=== PATIENT | female | born 1990 | race Caucasian/White ===

== ENCOUNTER 2017-03-11 16:25 | Emergency (ER) | payer OTHER ==
[2017-03-11 16:48] VITALS: BP 129/73
--- NOTE | 2017-03-11 16:52 | EDM.PDOC ---
ED HPI GENERAL MEDICAL PROBLEM - General Chief Complaint: ENT Problem Stated Complaint: LET EAR PAIN Time Seen by Provider: 03/11/17 16:36 - History of Present Illness INITIAL COMMENTS - FREE TEXT/NARRATIVE: HISTORY AND PHYSICAL: History of present illness: Past 26-year-old female presents with a concern of decreased hearing left ear she denies pain nausea vomiting fever chills other concern Review of systems: As per history of present illness and below otherwise all systems reviewed and negative. Past medical history: As per history of present illness and as reviewed below otherwise noncontributory. Surgical history: As per history of present illness and as reviewed below otherwise noncontributory. Social history: No reported history of drug or alcohol abuse. Family history: As per history of present illness and as reviewed below otherwise noncontributory. Physical exam: HEENT: Atraumatic, normocephalic, pupils reactive, negative for conjunctival pallor or scleral icterus, mucous membranes moist, throat clear, neck supple, nontender, trachea midline. Left TM is completely occluded with cerumen. There is no tenderness with movement of pinna or other significant finding Lungs: Clear to auscultation, breath sounds equal bilaterally, chest nontender. Heart: S1S2, regular, negative for clicks, rubs, or JVD. Abdomen: Soft, nondistended, nontender. Negative for masses or hepatosplenomegaly. Negative for costovertebral tenderness. Pelvis: Stable nontender. Genitourinary: Deferred. Rectal: Deferred. Extremities: Atraumatic, negative for cords or calf pain. Neurovascular unremarkable. Neuro: Awake, alert, oriented. Cranial nerves II through XII unremarkable. Cerebellum unremarkable. Motor and sensory unremarkable throughout. Exam nonfocal. Diagnostics: None Therapeutics: None Impression: #1 cerumen impaction left ear Definitive disposition and diagnosis as appropriate pending reevaluation and review of above. - Related Data Allergies Allergy/AdvReac Type Severity Reaction Status Date / Time [place] And Derivatives Allergy Stomach Verified 01/21/15 15:05 Upset metformin Allergy Muscle Verified 03/11/17 16:45 Aches aloe Allergy Rash Uncoded 01/21/15 15:05 Home Meds: Home Meds . [Unable to Verify Home Med List] 03/11/17 [History] Past Medical History - Past Health History Medical/Surgical History: Denies Medical/Surgical History Social & Family History - Tobacco Use Smoking Status *Q: Current Every Day Smoker Years of Tobacco use: 9 Packs/Tins Daily: 0.7 Second Hand Smoke Exposure: No - Alcohol Use Days Per Week of Alcohol Use: 0 - Recreational Drug Use Recreational Drug Use: No Drug Use in Last 12 Months: No Recreational Drug Type: Reports: Marijuana/Hashish, Methamphetamine Recreational Drug Use Frequency: Not Used In Over 1 Year ED ROS GENERAL - Review of Systems Review Of Systems: ROS reveals no pertinent complaints other than HPI. ED EXAM, GENERAL - Physical Exam Exam: See Below (Dictation) Course - Vital Signs Last Recorded V/S: Last Vital Signs Temp 36.4 C 03/11/17 16:46 Pulse 95 03/11/17 16:46 Resp 18 03/11/17 16:46 BP 129/73 03/11/17 16:46 Pulse Ox 97 03/11/17 16:46 Departure - Departure Time of Disposition: 16:51 Disposition: Home, Self-Care 01 Condition: Good Clinical Impression: Cerumen impaction - Discharge Information Referrals: PCP,None [Primary Care Provider] - Additional Instructions: The following information is given to patients seen in the emergency department who are being discharged to home. This information is to outline your options for follow-up care. We provide all patients seen in our emergency department with a follow-up referral. The need for follow-up, as well as the timing and circumstances, are variable depending upon the specifics of your emergency department visit. If you don't have a primary care physician on staff, we will provide you with a referral. We always advise you to contact your personal physician following an emergency department visit to inform them of the circumstance of the visit and for follow-up with them and/or the need for any referrals to a consulting specialist. The emergency department will also refer you to a specialist when appropriate. This referral assures that you have the opportunity for followup care with a specialist. All of these measure are taken in an effort to provide you with optimal care, which includes your followup. Under all circumstances we always encourage you to contact your private physician who remains a resource for coordinating your care. When calling for followup care, please make the office aware that this follow-up is from your recent emergency room visit. If for any reason you are refused follow-up, please contact the [facility] emergency department at and asked to speak to the emergency department charge nurse. [facility]NT [address] [place] [id number] [facility] drops as directed otic lavage as discussed follow-up primary medical doctor and ENT call to schedule routine appointment return as needed as discussed
== END 2017-03-11 17:00 | disposition home or self-care (01) ==
LOC: MW.ED 16:25
DX: H61.22 Impacted cerumen, left ear (principal); F17.210 Nicotine dependence, cigarettes, uncomplicated; Z88.8 Allergy status to other drugs, medicaments and biological substances; Z91.018 Allergy to other foods
CPT/HCPCS: 99282

== ENCOUNTER 2017-05-19 16:36 | Emergency (ER) | payer OTHER ==
--- NOTE | 2017-05-19 17:22 | EDM.PDOC ---
ED HPI GENERAL MEDICAL PROBLEM - General Chief Complaint: ENT Problem Stated Complaint: POSSIBLE STREP THROAT Time Seen by Provider: 05/19/17 17:10 Source of Information: Reports: Patient History Limitations: Reports: No Limitations - History of Present Illness INITIAL COMMENTS - FREE TEXT/NARRATIVE: HISTORY AND PHYSICAL: History of present illness: [Patient comes to the emergency room complaining of head congestion, cough, fever, and mild sore throat. Change in her appetite and taste of food. Had one episode of vomiting this morning. Denies earaches and headache. No chest pain, shortness of breath or difficulty breathing. Denies abdominal pain. No change in bowel movements or bladder. Temp was over 100 today. Has not taken any medications for her symptoms. was diagnosed w/ strep throat 3 days ago. ] Review of systems: As per history of present illness and below otherwise all systems reviewed and negative. Past medical history: As per history of present illness and as reviewed below otherwise noncontributory. Surgical history: As per history of present illness and as reviewed below otherwise noncontributory. Social history: No reported history of drug or alcohol abuse. Family history: As per history of present illness and as reviewed below otherwise noncontributory. Physical exam: HEENT: Atraumatic, normocephalic. TMs are pearly sen and without erythema. Eyes are clear. Oral mucous membranes are pink and moist. Mild tonsillar swelling and erythema but no exudate. Neck is supple. Mildly tender in shoddy anterior cervical lymph nodes. Lungs: Clear to auscultation, breath sounds equal bilaterally. No wheezing crackles or rales. Heart: S1S2, regular rate and rhythm. Abdomen: Soft, nondistended, nontender. Negative for costovertebral tenderness. Pelvis: Stable nontender. Genitourinary: Deferred. Rectal: Deferred. Extremities: Atraumatic. Full range of motion. Neurovascular unremarkable. Neuro: Awake, alert, oriented. Motor and sensory unremarkable throughout. Exam nonfocal. Diagnostics: [strep swab] Impression: [Streptococcal pharyngitis] Plan: [Strep swab is positive. Rx is written for amoxicillin 500 mg #30 si by mouth 3 times a day 0 refills. Instructed patient to push fluids, Tylenol and ibuprofen as needed for discomfort. Return to ER as needed as discussed. Patients in agreement with today's plan.] Definitive disposition and diagnosis as appropriate pending reevaluation and review of above. Throat Pain Score (Numeric/FACES): 5 - Related Data Allergies Allergy/AdvReac Type Severity Reaction Status Date / Time [place] And Derivatives Allergy Stomach Verified 05/19/17 18:05 Upset metformin Allergy Muscle Verified 05/19/17 18:05 Aches aloe Allergy Rash Uncoded 05/19/17 18:05 Home Meds: Home Meds . [No Known Home Meds] 05/19/17 [History] Past Medical History - Past Health History Medical/Surgical History: Denies Medical/Surgical History HEENT History: Reports: None Cardiovascular History: Reports: None Respiratory History: Reports: None Gastrointestinal History: Reports: None Genitourinary History: Reports: None VIDEO PRODUCTION INTERN History: Reports: Other (See Below) Other OB/BYN History: PCOS Musculoskeletal History: Reports: None Neurological History: Reports: None Psychiatric History: Reports: None Endocrine/Metabolic History: Reports: Diabetes, Type II Hematologic History: Reports: None Immunologic History: Reports: None Oncologic (Cancer) History: Reports: None Dermatologic History: Reports: None - Infectious Disease History Infectious Disease History: Reports: MRSA - Past Surgical History Head Surgeries/Procedures: Reports: None HEENT Surgical History: Reports: None Cardiovascular Surgical History: Reports: None Respiratory Surgical History: Reports: None GI Surgical History: Reports: None Female Surgical History: Reports: None Endocrine Surgical History: Reports: None Neurological Surgical History: Reports: None Musculoskeletal Surgical History: Reports: None Oncologic Surgical History: Reports: Other (See Below) Other Oncologic Surgeries/Procedures: Leg tumor removed Dermatological Surgical History: Reports: None Social & Family History - Family History Family Medical History: Noncontributory - Tobacco Use Smoking Status *Q: Current Every Day Smoker Years of Tobacco use: 9 Packs/Tins Daily: 0.7 Second Hand Smoke Exposure: No - Caffeine Use Caffeine Use: Reports: None - Alcohol Use Days Per Week of Alcohol Use: 0 - Recreational Drug Use Recreational Drug Use: No Drug Use in Last 12 Months: No Recreational Drug Type: Reports: Marijuana/Hashish, Methamphetamine Recreational Drug Use Frequency: Not Used In Over 1 Year ED ROS ENT - Review of Systems Review Of Systems: ROS reveals no pertinent complaints other than HPI. ED EXAM, ENT - Physical Exam Exam: See Below Course - Vital Signs Last Recorded V/S: Last Vital Signs Temp 98.2 F 05/19/17 18:00 Pulse 83 05/19/17 19:06 Resp 18 05/19/17 19:06 BP 129/89 05/19/17 19:06 Pulse Ox 95 05/19/17 19:06 Departure - Departure Time of Disposition: 18:46 Disposition: Home, Self-Care 01 Condition: Good Clinical Impression: Strep pharyngitis - Discharge Information Instructions: Strep Throat, [id number] Referrals: PCP,None [Primary Care Provider] - Forms: ED Department Discharge Additional Instructions: The following information is given to patients seen in the emergency department who are being discharged to home. This information is to outline your options for follow-up care. We provide all patients seen in our emergency department with a follow-up referral. The need for follow-up, as well as the timing and circumstances, are variable depending upon the specifics of your emergency department visit. If you don't have a primary care physician on staff, we will provide you with a referral. We always advise you to contact your personal physician following an emergency department visit to inform them of the circumstance of the visit and for follow-up with them and/or the need for any referrals to a consulting specialist. The emergency department will also refer you to a specialist when appropriate. This referral assures that you have the opportunity for follow-up care with a specialist. All of these measure are taken in an effort to provide you with optimal care, which includes your follow-up. Under all circumstances we always encourage you to contact your private physician who remains a resource for coordinating your care. When calling for follow-up care, please make the office aware that this follow-up is from your recent emergency room visit. If for any reason you are refused follow-up, please contact the [facility] emergency department at and asked to speak to the emergency department charge nurse. [facility] [address] [place] [id number] You have been diagnosed with strep throat. Follow-up with your primary care provider at the clinic listed above and 48-72 hours. Take antibiotics as prescribed. Push fluids. Tylenol alternating with ibuprofen as needed for fever or discomfort. Return to ER as needed as discussed.
[2017-05-19 19:07] VITALS: BP 129/89
== END 2017-05-19 19:05 | disposition home or self-care (01) ==
LOC: MW.ED 16:36
DX: J02.0 Streptococcal pharyngitis (principal); E11.9 Type 2 diabetes mellitus without complications; F17.210 Nicotine dependence, cigarettes, uncomplicated; Z88.8 Allergy status to other drugs, medicaments and biological substances
CPT/HCPCS: 87880; 99282; 99283

== ENCOUNTER 2017-09-08 19:56 | Emergency (ER) | payer OTHER ==
--- NOTE | 2017-09-08 20:22 | EDM.PDOC ---
ED HPI GENERAL MEDICAL PROBLEM - General Chief Complaint: Abdominal Pain Stated Complaint: BLOOD IN STOOL Time Seen by Provider: 09/08/17 20:20 Source of Information: Reports: Patient History Limitations: Reports: No Limitations - History of Present Illness INITIAL COMMENTS - FREE TEXT/NARRATIVE: HISTORY AND PHYSICAL: History of present illness: 27-year-old female presenting months prior when she complained of bright red per rectum on and off for the past week. Patient states that she is noticed some bright red blood per rectum. States she does sometimes have pain with defecation. Does have a history of anal fissure. Does report to chronic heartburn but does not take any medications for this. Uses milk to help relieve her heartburn. States that she does have some generalized lower abdominal pain but denies any overt sharp pains. No previous abdominal surgery. No history of diverticulosis or diverticulitis. Does have a past medical history of type 2 diabetes currently diet controlled. Currently denies any chest pain, palpitations, shortness breath, syncopal episodes, focal episodes. On exam patient Hemoccult is positive and I do believe I appreciate a small internal anal fissure on JUAN. No signs of internal or external hemorrhoids. Mild generalized lower abdominal pain. Review of systems: As per history of present illness and below otherwise all systems reviewed and negative. Past medical history: As per history of present illness and as reviewed below otherwise noncontributory. Surgical history: As per history of present illness and as reviewed below otherwise noncontributory. Social history: No reported history of drug or alcohol abuse. Family history: As per history of present illness and as reviewed below otherwise noncontributory. Physical exam: HEENT: Atraumatic, normocephalic, pupils reactive, negative for conjunctival pallor or scleral icterus, mucous membranes moist, throat clear, neck supple, nontender, trachea midline. Lungs: Clear to auscultation, breath sounds equal bilaterally, chest nontender. Heart: S1S2, regular, negative for clicks, rubs, or JVD. Abdomen: Soft, nondistended, nontender. Negative for masses or hepatosplenomegaly. Negative for costovertebral tenderness. Pelvis: Stable nontender. Genitourinary: Deferred. Rectal: See above H&P Extremities: Atraumatic, negative for cords or calf pain. Neurovascular unremarkable. Neuro: Awake, alert, oriented. Cranial nerves II through XII unremarkable. Cerebellum unremarkable. Motor and sensory unremarkable throughout. Exam nonfocal. Diagnostics: CBC, CMP, lipase, UA/UC, hCG, CT abdomen and pelvis, Hemoccult Therapeutics: 1 L normal saline, 8 mg IV Zofran. Impression: Suspect anal fissure Bright red blood per rectum Hyperglycemia with past medical history of type 2 diabetes Plan: CBC, CMP, lipase, and urinalysis were unremarkable other than hyperglycemia of 400 which I discussed with the patient. She has a history of type 2 diabetes but currently was being diet controlled as she has had improvement in the past. She is going to follow with her primary care provider about this after today's visit. On digital rectal exam I believe I was able appreciate a small anal fissure and Hemoccult was positive for microscopic blood. CT revealed a upper limits of normal appendiceal caliber with luminal fluid and mild wall enhancement, however without significant or appendiceal changes. They noted that the findings could be within normal limits for this patient but unequivocal for early appendicitis. On exam patient is not tender to palpation in the right lower quadrant. There was no evidence of diverticulitis or bowel obstruction however as per radiology dated recommend formal colonic evaluation secondary to her history. This was reported to the patient and she was told to follow-up with general surgery as well as a primary care provider. I did supply number as well as told her to call them and let them know that she was seen in emergency department and that I had requested that she be seen as soon as possible. She is instructed to return emerged department if she had any new or worsening symptoms. In further discussion with the patient I was able to elucidate the patient actually does have untreated GERD. I did not order a Helicobacter pylori but this should be done by either PCP or general surgery. I did prescribe her omeprazole 40 mg by mouth daily 14 days. abdomen Pain Score (Numeric/FACES): 6 - Related Data Allergies Allergy/AdvReac Type Severity Reaction Status Date / Time Magoffin And Derivatives Allergy Stomach Verified 09/08/17 20:22 Upset metformin Allergy Muscle Verified 09/08/17 20:22 Aches aloe Allergy Rash Uncoded 09/08/17 20:22 Home Meds: Home Meds Hydrocodone/Acetaminophen [Hydrocodon-Acetaminoph 7.5-300] 0 mg PO ASDIRECTED PRN 09/08/17 [History] Insulin Glarg,Human.Rec.Analog [Lantus] 12 units SQ ASDIRECTED 09/08/17 [History ] Past Medical History - Past Health History Medical/Surgical History: Denies Medical/Surgical History HEENT History: Reports: None Cardiovascular History: Reports: None Respiratory History: Reports: None Gastrointestinal History: Reports: None Genitourinary History: Reports: None CYLINDER DEVALVER History: Reports: Other (See Below) Other OB/BYN History: PCOS Musculoskeletal History: Reports: None Neurological History: Reports: None Psychiatric History: Reports: None Endocrine/Metabolic History: Reports: Diabetes, Type II Hematologic History: Reports: None Immunologic History: Reports: None Oncologic (Cancer) History: Reports: None Dermatologic History: Reports: None - Infectious Disease History Infectious Disease History: Reports: MRSA - Past Surgical History Head Surgeries/Procedures: Reports: None HEENT Surgical History: Reports: None Cardiovascular Surgical History: Reports: None Respiratory Surgical History: Reports: None GI Surgical History: Reports: None Female Surgical History: Reports: None Endocrine Surgical History: Reports: None Neurological Surgical History: Reports: None Musculoskeletal Surgical History: Reports: None Oncologic Surgical History: Reports: Other (See Below) Other Oncologic Surgeries/Procedures: Leg tumor removed Dermatological Surgical History: Reports: None Social & Family History - Family History Family Medical History: Noncontributory - Caffeine Use Caffeine Use: Reports: None ED ROS GENERAL - Review of Systems Review Of Systems: ROS reveals no pertinent complaints other than HPI. ED EXAM, GENERAL - Physical Exam Exam: See Below Course - Vital Signs Last Recorded V/S: Last Vital Signs Temp 97.9 F 09/08/17 20:29 Pulse 100 09/09/17 00:04 Resp 18 09/09/17 00:04 BP 138/84 09/09/17 00:04 Pulse Ox 95 09/08/17 23:25 - Orders/Labs/Meds Orders: Active Orders 24 hr Category Date Time Status Abdomen Pelvis w Cont [CT] Stat Exams 09/08/17 21:00 Taken CULTURE URINE [RM] Stat Lab 09/08/17 23:20 Ordered HCG QUALITATIVE,URINE [URCHEM] Stat Lab 09/08/17 23:20 Ordered UA W/MICROSCOPIC [URIN] Stat Lab 09/08/17 23:20 Ordered Sodium Chloride 0.9% [Saline Flush] Med 09/08/17 20:57 Active 10 ml FLUSH ASDIRECTED PRN Sodium Chloride 0.9% [Saline Flush] Med 09/08/17 20:57 Active 2.5 ml FLUSH ASDIRECTED PRN Sodium Chloride 0.9% [Saline Flush] Med 09/08/17 20:57 Active 2.5 ml FLUSH ASDIRECTED PRN Saline Lock Insert [OM.PC] Stat Oth 09/08/17 20:57 Ordered Medication Orders Sodium Chloride (Saline Flush) 2.5 ml FLUSH ASDIRECTED PRN PRN Reason: Keep Vein Open Sodium Chloride (Saline Flush) 10 ml FLUSH ASDIRECTED PRN PRN Reason: Keep Vein Open Sodium Chloride (Saline Flush) 2.5 ml FLUSH ASDIRECTED PRN PRN Reason: Keep Vein Open Labs: Laboratory Tests 09/08/17 09/08/17 09/08/17 Range/Units 20:57 21:02 21:02 WBC 10.20 (4.0-11.0) K/uL RBC 4.93 (4.30-5.90) M/uL Hgb 14.4 (12.0-16.0) g/dL Hct 41.6 (36.0-46.0) % MCV 84.4 (80.0-98.0) fL MCH 29.2 (27.0-32.0) pg MCHC 34.6 (31.0-37.0) g/dL RDW Std Deviation 40.3 (28.0-62.0) fl RDW Coeff of Kinjal 13 (11.0-15.0) % Plt Count 386 (150-400) K/uL MPV 9.00 (7.40-12.00) fL Neut % (Auto) 55.4 (48.0-80.0) % Lymph % (Auto) 34.4 (16.0-40.0) % Floyd % (Auto) 7.0 (0.0-15.0) % Eos % (Auto) 2.9 (0.0-7.0) % Baso % (Auto) 0.3 (0.0-1.5) % Neut # (Auto) 5.7 (1.4-5.7) K/uL Lymph # (Auto) 3.5 H (0.6-2.4) K/uL Floyd # (Auto) 0.7 (0.0-0.8) K/uL Eos # (Auto) 0.3 (0.0-0.7) K/uL Baso # (Auto) 0.0 (0.0-0.1) K/uL Nucleated RBC % 0.0 /100WBC Nucleated RBCs # 0 K/uL Sodium 137 (136-145) mmol/L Potassium 3.9 (3.5-5.1) mmol/L Chloride 102 (98-107) mmol/L Carbon Dioxide 25.3 (21.0-32.0) mmol/L BUN 11 (7.0-18.0) mg/dL Creatinine 0.8 (0.6-1.0) mg/dL Est Cr Clr Drug Dosing 110.39 mL/min Estimated GFR (MDRD) > 60.0 ml/min Glucose 403 H (74-106) mg/dL Calcium 8.7 (8.5-10.1) mg/dL Total Bilirubin 0.3 (0.2-1.0) mg/dL AST 38 H (15-37) IU/L ALT 54 (14-63) IU/L Alkaline Phosphatase 89 (46-116) U/L Total Protein 7.3 (6.4-8.2) g/dL Albumin 3.6 (3.4-5.0) g/dL Globulin 3.7 H (2.0-3.5) g/dL Albumin/Globulin Ratio 1.0 L (1.3-2.8) Amylase 43 (25-115) U/L Lipase 143 (73-393) U/L HCG, Quant < 1.0 mIU/mL Urine Color Urine Appearance Urine pH (5.0-8.0) Ur Specific Barlow (1.001-1.035) Urine Protein (NEGATIVE) mg/dL Urine Glucose (UA) (NEGATIVE) mg/dL Urine Ketones (NEGATIVE) mg/dL Urine Occult Blood (NEGATIVE) Urine Nitrite (NEGATIVE) Urine Bilirubin (NEGATIVE) Urine Urobilinogen (<2.0) EU/dL Ur Leukocyte Esterase (NEGATIVE) Urine RBC (0-2/HPF) Urine WBC (0-5/HPF) Ur Epithelial Cells (NONE-FEW) Urine Bacteria (NEGATIVE) Urine Mucus (NONE-MOD) Urine HCG, Qual (NEGATIVE) 09/08/17 09/08/17 Range/Units 23:20 23:20 WBC (4.0-11.0) K/uL RBC (4.30-5.90) M/uL Hgb (12.0-16.0) g/dL Hct (36.0-46.0) % MCV (80.0-98.0) fL MCH (27.0-32.0) pg MCHC (31.0-37.0) g/dL RDW Std Deviation (28.0-62.0) fl RDW Coeff of Kinjal (11.0-15.0) % Plt Count (150-400) K/uL MPV (7.40-12.00) fL Neut % (Auto) (48.0-80.0) % Lymph % (Auto) (16.0-40.0) % Floyd % (Auto) (0.0-15.0) % Eos % (Auto) (0.0-7.0) % Baso % (Auto) (0.0-1.5) % Neut # (Auto) (1.4-5.7) K/uL Lymph # (Auto) (0.6-2.4) K/uL Floyd # (Auto) (0.0-0.8) K/uL Eos # (Auto) (0.0-0.7) K/uL Baso # (Auto) (0.0-0.1) K/uL Nucleated RBC % /100WBC Nucleated RBCs # K/uL Sodium (136-145) mmol/L Potassium (3.5-5.1) mmol/L Chloride (98-107) mmol/L Carbon Dioxide (21.0-32.0) mmol/L BUN (7.0-18.0) mg/dL Creatinine (0.6-1.0) mg/dL Est Cr Clr Drug Dosing mL/min Estimated GFR (MDRD) ml/min Glucose (74-106) mg/dL Calcium (8.5-10.1) mg/dL Total Bilirubin (0.2-1.0) mg/dL AST (15-37) IU/L ALT (14-63) IU/L Alkaline Phosphatase (46-116) U/L Total Protein (6.4-8.2) g/dL Albumin (3.4-5.0) g/dL Globulin (2.0-3.5) g/dL Albumin/Globulin Ratio (1.3-2.8) Amylase (25-115) U/L Lipase (73-393) U/L HCG, Quant mIU/mL Urine Color YELLOW Urine Appearance SLT CLOUDY Urine pH 5.0 (5.0-8.0) Ur Specific Barlow <= 1.005 (1.001-1.035) Urine Protein NEGATIVE (NEGATIVE) mg/dL Urine Glucose (UA) >=1000 (NEGATIVE) mg/dL Urine Ketones NEGATIVE (NEGATIVE) mg/dL Urine Occult Blood NEGATIVE (NEGATIVE) Urine Nitrite NEGATIVE (NEGATIVE) Urine Bilirubin NEGATIVE (NEGATIVE) Urine Urobilinogen 0.2 (<2.0) EU/dL Ur Leukocyte Esterase TRACE (NEGATIVE) Urine RBC 0-1 (0-2/HPF) Urine WBC 1-3 (0-5/HPF) Ur Epithelial Cells MODERATE (NONE-FEW) Urine Bacteria FEW (NEGATIVE) Urine Mucus LIGHT (NONE-MOD) Urine HCG, Qual NEGATIVE (NEGATIVE) Meds: Medications Generic Name Dose Route Start Last Admin Trade Name Freq PRN Reason Stop Dose Admin Sodium Chloride 2.5 ml 09/08/17 20:57 Saline Flush FLUSH ASDIRECTED PRN Keep Vein Open Sodium Chloride 10 ml 09/08/17 20:57 Saline Flush FLUSH ASDIRECTED PRN Keep Vein Open Sodium Chloride 2.5 ml 09/08/17 20:57 Saline Flush FLUSH ASDIRECTED PRN Keep Vein Open Discontinued Medications Generic Name Dose Route Start Last Admin Trade Name Freq PRN Reason Stop Dose Admin Sodium Chloride 1,000 mls @ 999 mls/hr 09/08/17 20:57 09/08/17 22:27 Normal Saline IV 09/08/17 21:57 999 mls/hr .Bolus ONE Administration Departure - Departure Time of Disposition: 00:45 Disposition: Home, Self-Care 01 Condition: Good Clinical Impression: Anal fissure, unspecified, Bright red blood per rectum - Discharge Information Referrals: PCP,None [Primary Care Provider] - Forms: ED Department Discharge Additional Instructions: My general discharge The following information is given to patients seen in the emergency department who are being discharged to home. This information is to outline your options for follow-up care. We provide all patients seen in our emergency department with a follow-up referral. The need for follow-up, as well as the timing and circumstances, are variable depending upon the specifics of your emergency department visit. If you don't have a primary care physician on staff, we will provide you with a referral. We always advise you to contact your personal physician following an emergency department visit to inform them of the circumstance of the visit and for follow-up with them and/or the need for any referrals to a consulting specialist. The emergency department will also refer you to a specialist when appropriate. This referral assures that you have the opportunity for follow-up care with a specialist. All of these measure are taken in an effort to provide you with optimal care, which includes your follow-up. Under all circumstances we always encourage you to contact your private physician who remains a resource for coordinating your care. When calling for follow-up care, please make the office aware that this follow-up is from your recent emergency room visit. If for any reason you are refused follow-up, please contact the [facility] Emergency Department at and asked to speak to the emergency department charge nurse. [facility] [address] [place] [id number] My General Surgery [facility] - General Surgery Professional Building [address] [place] [address], [address] [place] [address] [facility] - Women's Health [address] [place] [id number] [facility] [address] [place] [id number] Please see above numbers to schedule follow-up care with general surgery as well as primary care and women's health. Be sure to tell them that you were seen in emergency department and they recommended follow-up as soon as possible especially with surgery as I would recommend that you have an EGD as well as colonoscopy and Helicobacter pylori testing. Take medication as prescribed. Return emergency department if any new or worsening symptoms. - My Orders Last 24 Hours: My Active Orders 09/08/17 20:57 Sodium Chloride 0.9% [Saline Flush] 10 ml FLUSH ASDIRECTED PRN Sodium Chloride 0.9% [Saline Flush] 2.5 ml FLUSH ASDIRECTED PRN Sodium Chloride 0.9% [Saline Flush] 2.5 ml FLUSH ASDIRECTED PRN Saline Lock Insert [OM.PC] Stat 09/08/17 21:00 Abdomen Pelvis w Cont [CT] Stat 09/08/17 23:20 CULTURE URINE [RM] Stat HCG QUALITATIVE,URINE [URCHEM] Stat UA W/MICROSCOPIC [URIN] Stat - Assessment/Plan Last 24 Hours: My Active Orders 09/08/17 20:57 Sodium Chloride 0.9% [Saline Flush] 10 ml FLUSH ASDIRECTED PRN Sodium Chloride 0.9% [Saline Flush] 2.5 ml FLUSH ASDIRECTED PRN Sodium Chloride 0.9% [Saline Flush] 2.5 ml FLUSH ASDIRECTED PRN Saline Lock Insert [OM.PC] Stat 09/08/17 21:00 Abdomen Pelvis w Cont [CT] Stat 09/08/17 23:20 CULTURE URINE [RM] Stat HCG QUALITATIVE,URINE [URCHEM] Stat UA W/MICROSCOPIC [URIN] Stat
[2017-09-08] MEDS ORDERED: Sodium Chloride 0.9% 1,000 ML IV ONE (20:57)
[2017-09-08] MEDS ORDERED: Sodium Chloride 0.9% 10 ML Syringe FLUSH PRN (20:57)
[2017-09-08] MEDS ORDERED: Sodium Chloride 0.9% 2.5 ML Syringe FLUSH PRN ×2 (20:57)
[2017-09-08 21:34] LABS: CHLORIDE,CL 102 mmol/L (98-107); SODIUM,NA 137 mmol/L (136-145)
[2017-09-09 01:08] VITALS: BP 148/88
--- NOTE | 2017-09-09 16:37 | CT ---
EXAM DATE: 09/08/17 PATIENT'S AGE: 27 EXAM DATE: 09/08/17 PATIENT'S AGE: 27 Patient: RENATA REILLY Facility: [place], [place] Site . Site : 1990 Study: CT Abdomen/Pelvis [id number] 11:12:36 PM Ordering Physician: Anthony Keating Final Report: INDICATION: Bloody stools TECHNIQUE: CT abdomen and pelvis acquired with IV contrast. COMPARISON: None available FINDINGS: Lower chest: Unremarkable. Liver: Hepatic steatosis. Spleen: Unremarkable. Pancreas: Unremarkable. Gallbladder and bile ducts: Apparent small reticular densities within the contracted gallbladder lumen could represent cholelithiasis. Adrenal glands: Unremarkable. Kidneys: Unremarkable. GI tract: No bowel obstruction. The appendix is upper limits of normal in caliber and fluid-filled, with slight wall enhancement, however without significant periappendiceal changes. No significant pericolonic changes. Vascular structures: Unremarkable. Lymph nodes: Several subcentimeter right lower quadrant mesenteric lymph nodes are probably reactive. No abnormally enlarged lymph nodes seen. Miscellaneous: Unremarkable. No free air or significant free fluid. Pelvic Organs: Unremarkable. Bones: Unremarkable for age. IMPRESSION: Upper limits of normal appendiceal caliber with luminal fluid and mild wall enhancement, however without significant periappendiceal changes. The findings could be within normal limits for this patient, however equivocal for early appendicitis. Correlate clinically. No evidence of diverticulitis or bowel obstruction. Please note that this examination does not constitute adequate evaluation of the colonic lumen and given the history, formal colonic evaluation is advised. Hepatic steatosis. Dictated by Aníbal Garcia MD @ 09/08/2017 11:23:58 PM Please note that all CT scans at this facility use dose modulation, iterative reconstruction, and/or weight-based dosing when appropriate to reduce radiation dose to as low as reasonably achievable. Dictated by: Aníbal Garcia MD @ 09/08/2017 23:24:05 (Electronic Signature) Report Signed by Proxy. KAROL
== END 2017-09-09 01:08 | disposition home or self-care (01) ==
LOC: MW.ED 19:56
DX: K60.2 Anal fissure, unspecified (principal); K62.5 Hemorrhage of anus and rectum; E11.65 Type 2 diabetes mellitus with hyperglycemia; Z91.018 Allergy to other foods; Z88.8 Allergy status to other drugs, medicaments and biological substances
CPT/HCPCS: 36415; 74177; 80053; 81001; 81025; 82150; 83690; 84702; 85025; 87086; 96360; 96361; 99284; J7040

== ENCOUNTER 2018-12-17 13:31 | Emergency (ER) | payer OTHER ==
[2018-12-17] MEDS ORDERED: Albuterol/Ipratropium 3.0-0.5 MG/3 ML Neb Soln NEB ONE (13:58)
--- NOTE | 2018-12-17 13:58 | EDM.PDOC ---
ED HPI GENERAL MEDICAL PROBLEM - General Chief Complaint: Respiratory Problem Stated Complaint: COUGH Time Seen by Provider: 12/17/18 13:58 Source of Information: Reports: Patient History Limitations: Reports: No Limitations - History of Present Illness INITIAL COMMENTS - FREE TEXT/NARRATIVE: HISTORY AND PHYSICAL: History of present illness: Patient is a 28-year-old female presents to the ED with complaint of cough x 2 days. She states she is up all night coughing and has had subjective fevers. She denies chest pain, shortness of breath, nausea, vomiting, abdominal pain, diarrhea. She reports smoking 1/2ppd x 10+ years. Review of systems: As per history of present illness and below otherwise all systems reviewed and negative. Past medical history: As per history of present illness and as reviewed below otherwise noncontributory. Surgical history: As per history of present illness and as reviewed below otherwise noncontributory. Social history: No reported history of drug or alcohol abuse. Family history: As per history of present illness and as reviewed below otherwise noncontributory. Physical exam: General: Patient sitting comfortably in no acute distress and nontoxic appearing HEENT: Atraumatic, normocephalic, pupils reactive, negative for conjunctival pallor or scleral icterus, mucous membranes moist, throat clear, neck supple, nontender, trachea midline. No meningeal signs. Lungs: Wheezing throughout all lung velazquez, chest nontender. Heart: S1S2, regular, negative for clicks, rubs, or overt murmur. Abdomen: Soft, nondistended, nontender. Negative for masses or hepatosplenomegaly. Negative for costovertebral tenderness. No rigidity, rebound , guarding. Pelvis: Stable nontender. Genitourinary: Deferred. Rectal: Deferred. Extremities: Atraumatic, negative for cords or calf pain. Neurovascular unremarkable. Neuro: Awake, alert, oriented. Cranial nerves II through XII unremarkable. Cerebellum unremarkable. Motor and sensory unremarkable throughout. Exam nonfocal. Notes: Diagnostics: Chest x-ray, influenza Therapeutics: DuoNeb Prescriptions: Medrol dosepak Azithromycin Ventolin inhaler Impression: Acute bronchitis Plan: Take medications as instructed Follow up with primary care provider Return to ED as needed as discussed Definitive disposition and diagnosis as appropriate pending reevaluation and review of above. - Related Data Allergies Allergy/AdvReac Type Severity Reaction Status Date / Time [place] And Derivatives Allergy "throat Verified 10/10/17 10:24 swells" metformin Allergy Seizure Verified 10/10/17 10:24 aloe Allergy Nausea and Uncoded 10/10/17 10:24 Vomiting Home Meds: Home Meds Insulin Glarg,Human.Rec.Analog [Lantus] 12 units SQ ASDIRECTED PRN 09/08/17 [ History] Albuterol [Ventolin HFA] 1 puff INH Q4H #1 inhaler 12/17/18 [Rx] Azithromycin [Zithromax] 250 mg PO ASDIRECTED #1 dosepk 12/17/18 [Rx] methylPREDNISolone [Medrol] 4 mg PO ASDIRECTED #1 tab.ds.pk 12/17/18 [Rx] Past Medical History - Past Health History Medical/Surgical History: Denies Medical/Surgical History HEENT History: Reports: None Cardiovascular History: Reports: None Respiratory History: Reports: None Gastrointestinal History: Reports: GERD, Other (See Below) Other Gastrointestinal History: dysphagia Genitourinary History: Reports: Renal 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: Reports: Polycystic Ovaries, Musculoskeletal History: Reports: Fracture Other Musculoskeletal History: fx foot Neurological History: Reports: Migraines, Seizure 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 Psychiatric History: Reports: None Endocrine/Metabolic History: Reports: Obesity/BMI 30+, Other (See Below) Other Endocrine/Metabolic History: "insulin resistant" Hematologic History: Reports: None Immunologic History: Reports: None Oncologic (Cancer) History: Reports: None Dermatologic History: Reports: None - Infectious Disease History Infectious Disease History: Reports: MRSA - Past Surgical History Head Surgeries/Procedures: Reports: None HEENT Surgical History: Reports: Oral Surgery Cardiovascular Surgical History: Reports: None Respiratory Surgical History: Reports: None GI Surgical History: Reports: None Female Surgical History: Reports: None Endocrine Surgical History: Reports: None Neurological Surgical History: Reports: None Musculoskeletal Surgical History: Reports: None Other Musculoskeletal Surgeries/Procedures:: LEFT THIGH TUMOR Oncologic Surgical History: Reports: None Dermatological Surgical History: Reports: Other (See Below) Social & Family History - Family History Family Medical History: Noncontributory - Caffeine Use Caffeine Use: Reports: None ED ROS GENERAL - Review of Systems Review Of Systems: ROS reveals no pertinent complaints other than HPI. ED EXAM, GENERAL - Physical Exam Exam: See Below (see dictation) Course - Vital Signs Last Recorded V/S: Last Vital Signs Temp 97 F 12/17/18 14:00 Pulse 98 12/17/18 14:00 Resp 22 H 12/17/18 14:00 BP 143/90 H 12/17/18 14:00 Pulse Ox 95 12/17/18 14:00 - Orders/Labs/Meds Orders: Active Orders 24 hr Category Date Time Status RT Aerosol Therapy [RC] ASDIRECTED Care 12/17/18 13:58 Active Meds: Medications Discontinued Medications Generic Name Dose Route Start Last Admin Trade Name Freq PRN Reason Stop Dose Admin Albuterol/Ipratropium 3 ml 12/17/18 13:58 12/17/18 14:06 Duoneb 3.0-0.5 Mg/3 Ml NEB 12/17/18 13:59 3 ml ONETIME ONE Administration Departure - Departure Time of Disposition: 15:23 Disposition: Home, Self-Care 01 Condition: Good Clinical Impression: Acute bronchitis - Discharge Information Prescriptions: Albuterol [Ventolin HFA] 1 puff INH Q4H #1 inhaler Azithromycin [Zithromax] 250 mg PO ASDIRECTED #1 dosepk methylPREDNISolone [Medrol] 4 mg PO ASDIRECTED #1 tab.ds.pk Referrals: Mesfin Guido MD [Primary Care Provider] - Forms: ED Department Discharge Additional Instructions: The following information is given to patients seen in the emergency department who are being discharged to home. This information is to outline your options for follow-up care. We provide all patients seen in our emergency department with a follow-up referral. The need for follow-up, as well as the timing and circumstances, are variable depending upon the specifics of your emergency department visit. If you don't have a primary care physician on staff, we will provide you with a referral. We always advise you to contact your personal physician following an emergency department visit to inform them of the circumstance of the visit and for follow-up with them and/or the need for any referrals to a consulting specialist. The emergency department will also refer you to a specialist when appropriate. This referral assures that you have the opportunity for follow-up care with a specialist. All of these measure are taken in an effort to provide you with optimal care, which includes your follow-up. Under all circumstances we always encourage you to contact your private physician who remains a resource for coordinating your care. When calling for follow-up care, please make the office aware that this follow-up is from your recent emergency room visit. If for any reason you are refused follow-up, please contact the [facility] Emergency Department at and asked to speak to the emergency department charge nurse. [facility] Primary [facility] [address] [place] [id number] [facility] [address] [place] [id number] Take medications as instructed Follow up with primary care provider Return to ED as needed as discussed - My Orders Last 24 Hours: My Active Orders 12/17/18 13:58 RT Aerosol Therapy [RC] ASDIRECTED - Assessment/Plan Last 24 Hours: My Active Orders 12/17/18 13:58 RT Aerosol Therapy [RC] ASDIRECTED
[2018-12-17 14:03] VITALS: BP 143/90; PULSE 98
--- NOTE | 2018-12-17 15:00 | CR ---
INDICATION: pain, sob TECHNIQUE: Chest 2 views. COMPARISON: 09/11/14 FINDINGS: Cardiovascular and mediastinum: Heart size and vasculature are normal in caliber and appearance. Mediastinum is within normal limits. Lungs and pleural spaces: Lungs are clear. No sign of infiltrate or mass. No sign of pleural effusion. No pneumothorax. Bones and soft tissues: No significant findings. IMPRESSION: Unremarkable chest. Dictated by: Rony Winn MD @ 12/17/2018 14:57:43 (Electronically Signed)
== END 2018-12-17 15:37 | disposition home or self-care (01) ==
LOC: MW.ED 13:31
DX: J20.9 Acute bronchitis, unspecified (principal); E66.9 Obesity, unspecified; F17.210 Nicotine dependence, cigarettes, uncomplicated; Z91.018 Allergy to other foods; Z88.8 Allergy status to other drugs, medicaments and biological substances; Z91.09 Other allergy status, other than to drugs and biological substances
CPT/HCPCS: 71046; 71046-26; 87804; 94640; 99284-25; J7620-GY

== ENCOUNTER 2020-06-21 14:41 | Day surgery (SDC) | payer OTHER ==
[2020-06-21] MEDS ORDERED: Sodium Chloride 0.9% 2.5 ML Syringe FLUSH PRN (14:50)
[2020-06-21] MEDS ORDERED: Sodium Chloride 0.9% 10 ML Syringe FLUSH PRN (14:50)
[2020-06-21] MEDS ORDERED: Sodium Chloride 0.9% 1,000 ML IV ONE ×2 (14:57→15:14)
--- NOTE | 2020-06-21 15:06 | EDM.PDOC ---
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 Her blood type is O+ in our records. The patient began to bleed heavily at 6 AM. She has been spotting off and on for more than a week. Today she got orthostatic symptoms and passed out twice one time hitting her head on the side of her shower and causing her neck pain. The patient is weak and dizzy and diaphoretic when she stands up. The thought of food causes her to feel nauseated so she has not eaten since she had some coffee at 8 AM and she has had nothing since then. Review of systems: As per history of present illness and below otherwise all systems reviewed and negative. Past medical history: As per history of present illness and as reviewed below otherwise noncontributory. Surgical history: As per history of present illness and as reviewed below otherwise noncontributory. Social history: No reported history of drug or alcohol abuse. Family history: As per history of present illness and as reviewed below otherwise noncontributory. Physical exam: Constitutional - well developed, well-nourished and in no acute distress HEENT - normocephalic, no evidence of trauma - external nose and mouth normal - no mass in neck and no JVD - mucosae moist EYES - full EOM, PERRL, no icterus - no evidence of inflammation, injection, or drainage Respiratory - no respiratory distress, equal bilateral expansion, lungs clear to auscultation and no abnormal lung sounds Cardiovascular - Regular Rhythm with S1 and S2 appreciated and no murmur, gallop or rub. GI - abdomen soft without distension or organomegaly - normal bowel sounds - no guard or rebound Musculoskeletal no gross deformity of long bones or joints - no tenderness, swelling or edema Neurologic - Alert and oriented times four - CN II-XII grossly intact - motor sensory and coordination symmetrically normal Psychiatric - appropriate mood and affect with normal thought content Hematologic - No petechiae or purpura - mucosa appropriate color and sclera not pale - normal nail bed color and refill Integument - no rash or evidence of trauma - normal turgor Diagnostics: [] Therapeutics: [] Impression: [] Plan: [] Definitive disposition and diagnosis as appropriate pending reevaluation and review of above. Abdomen Pain Score (Numeric/FACES): 10 - Related Data Allergies Allergy/AdvReac Type Severity Reaction Status Date / Time adhesive Allergy Rash Verified 06/21/20 14:47 [place] And Derivatives Allergy "throat Verified 06/21/20 14:47 swells" metformin Allergy Seizure Verified 06/21/20 14:47 aloe Allergy Nausea and Uncoded 06/21/20 14:47 Vomiting Home Meds: Home Meds Insulin Glarg,Human.Rec.Analog [Lantus] 12 units SQ ASDIRECTED PRN 09/08/17 [History] Insulin Aspart [NovoLOG] 1 dose SUBCUT ASDIRECTED 06/21/20 [History] Past Medical History - Past Health History Medical/Surgical History: Denies Medical/Surgical History HEENT History: Reports: None Cardiovascular History: Reports: None Respiratory History: Reports: None Gastrointestinal History: Reports: GERD, Other (See Below) Other Gastrointestinal History: dysphagia Genitourinary History: Reports: Renal Calculus 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: 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, Musculoskeletal History: Reports: Fracture Other Musculoskeletal History: fx foot Neurological History: Reports: Migraines, Seizure 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 Psychiatric History: Reports: None Endocrine/Metabolic History: Reports: Obesity/BMI 30+, Other (See Below) Other Endocrine/Metabolic History: "insulin resistant" Hematologic History: Reports: None Immunologic History: Reports: None Oncologic (Cancer) History: Reports: None Dermatologic History: Reports: None - Infectious Disease History 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, MRSA - Past Surgical History Head Surgeries/Procedures: Reports: None HEENT Surgical History: Reports: Oral Surgery Cardiovascular Surgical History: Reports: None Respiratory Surgical History: Reports: None GI Surgical History: Reports: None Female Surgical History: Reports: None Endocrine Surgical History: Reports: None Neurological Surgical History: Reports: None Musculoskeletal Surgical History: Reports: None Other Musculoskeletal Surgeries/Procedures:: LEFT THIGH TUMOR Oncologic Surgical History: Reports: None Dermatological Surgical History: Reports: Other (See Below) Social & Family History - Family History Family Medical History: No Pertinent Family History - Tobacco Use Tobacco Use Status *Q: Former Tobacco User Used Tobacco, but Quit: Yes Month/Year Tobacco Last Used: 05/2020 - Caffeine Use Caffeine Use: Reports: None - Recreational Drug Use Recreational Drug Use: No ED ROS GENERAL - Review of Systems Review Of Systems: Comprehensive ROS is negative, except as noted in HPI. ED EXAM, GENERAL - Physical Exam Exam: See Below Free Text/Narrative:: My physical exam is in the HPI Course - Vital Signs Text/Narrative:: [address] Alvarado who recommends that we repeat the ultrasound to see how much biotic may be retained. She wants a speculum and bimanual exam to see if the tissue has passed into the vaginal vault. She agrees with my resuscitation plan and of course wants to be notified immediately if the patient deteriorates or if 5 given ample crystalloid resuscitation she is still orthostatic. Annual exam there are clots in the vagina but nothing that appears to be tissue. After portable lateral and AP C-spine I remove the collar and kept her still while we did a modified odontoid. I feel it adequately clears her from fracture. I then palpated the posterior spine and there is no point tenderness or crepitation or step-off. Her tenderness is actually in the right occiput. She is not on blood thinner and therefore I am not scanning her head. C-collar will be left off. The patient remained stable after the first liter fluid but her tachycardia persists. Initial hemoglobin is 12 with us after dilution with 2 units or [address] Alvarado intended the patient in the emergency department and decided to take her for D&C. Last Recorded V/S: Last Vital Signs Temp 35.9 C L 06/21/20 14:48 Pulse 93 06/21/20 16:39 Resp 18 06/21/20 15:17 BP 154/69 H 06/21/20 16:39 Pulse Ox 98 06/21/20 16:39 - Orders/Labs/Meds Orders: Active Orders 24 hr Category Date Time Status Communication Order [RC] STAT Care 06/21/20 14:58 Active Verify Patient Consent Obtain [RC] ASDIRECTED Care 06/21/20 15:10 Active Pelvis Non OB Ltd [US] Stat Exams 06/21/20 15:04 Taken CORONAVIRUS COVID-19 HARRIETT [MOLEC] Stat Lab 06/21/20 16:45 Received RED BLOOD CELLS LP [BBK] Stat Lab 06/21/20 14:56 Results TYPE AND SCREEN [BBK] Stat Lab 06/21/20 14:56 Results Sodium Chloride 0.9% [Saline Flush] Med 06/21/20 14:50 Active 10 ml FLUSH ASDIRECTED PRN Sodium Chloride 0.9% [Saline Flush] Med 06/21/20 14:50 Active 2.5 ml FLUSH ASDIRECTED PRN Saline Lock Insert [OM.PC] Stat Ot 06/21/20 14:50 Ordered Transfuse Red Blood Cells [COMM] Stat Ot 06/21/20 15:10 Ordered Medication Orders Sodium Chloride (Sodium Chloride 0.9% 10 Ml Syringe) 10 ml FLUSH ASDIRECTED PRN PRN Reason: Keep Vein Open Last Admin: 06/21/20 15:16 Dose: 10 ml Documented by: ALISHA Sodium Chloride (Sodium Chloride 0.9% 2.5 Ml Syringe) 2.5 ml FLUSH ASDIRECTED PRN PRN Reason: Keep Vein Open Last Admin: 06/21/20 15:16 Dose: 2.5 ml Documented by: ALISHA Labs: Laboratory Tests 06/21/20 06/21/20 06/21/20 Range/Units 14:55 14:55 14:56 WBC 15.21 H (4.0-11.0) K/uL RBC 3.96 L (4.30-5.90) M/uL Hgb 12.0 (12.0-16.0) g/dL Hct 35.1 L (36.0-46.0) % MCV 88.6 (80.0-98.0) fL MCH 30.3 (27.0-32.0) pg MCHC 34.2 (31.0-37.0) g/dL RDW Std Deviation 41.0 (28.0-62.0) fl RDW Coeff of Kinjal 13 (11.0-15.0) % Plt Count 360 (150-400) K/uL MPV 8.70 (7.40-12.00) fL Neut % (Auto) 69.3 (48.0-80.0) % Lymph % (Auto) 21.7 (16.0-40.0) % [place] % (Auto) 6.2 (0.0-15.0) % Eos % (Auto) 2.5 (0.0-7.0) % Baso % (Auto) 0.3 (0.0-1.5) % Neut # (Auto) 10.6 H (1.4-5.7) K/uL Lymph # (Auto) 3.3 H (0.6-2.4) K/uL [place] # (Auto) 0.9 H (0.0-0.8) K/uL Eos # (Auto) 0.4 (0.0-0.7) K/uL Baso # (Auto) 0.0 (0.0-0.1) K/uL Nucleated RBC % 0.0 /100WBC Nucleated RBCs # 0 K/uL Sodium 137 (136-145) mmol/L Potassium 3.8 (3.5-5.1) mmol/L Chloride 102 (98-107) mmol/L Carbon Dioxide 21.4 (21.0-32.0) mmol/L BUN 10 (7.0-18.0) mg/dL Creatinine 0.9 (0.6-1.0) mg/dL Est Cr Clr Drug Dosing 96.39 mL/min Estimated GFR (MDRD) > 60.0 ml/min Glucose 205 H (74-106) mg/dL Calcium 8.5 (8.5-10.1) mg/dL Total Bilirubin 0.3 (0.2-1.0) mg/dL AST 18 (15-37) IU/L ALT 22 (14-63) IU/L Alkaline Phosphatase 57 (46-116) U/L Total Protein 6.9 (6.4-8.2) g/dL Albumin 3.0 L (3.4-5.0) g/dL Globulin 3.9 (2.6-4.0) g/dL Albumin/Globulin Ratio 0.8 L (0.9-1.6) HCG, Quant 4970.0 mIU/mL Blood Type O POSITIVE Antibody Screen NEGATIVE Crossmatch See Detail Meds: Medications Generic Name Dose Route Start Last Admin Trade Name Freq PRN Reason Stop Dose Admin Sodium Chloride 10 ml 06/21/20 14:50 06/21/20 15:16 Sodium Chloride 0.9% 10 Ml Syringe FLUSH 10 ml ASDIRECTED PRN Administration Keep Vein Open Sodium Chloride 2.5 ml 06/21/20 14:50 06/21/20 15:16 Sodium Chloride 0.9% 2.5 Ml Syringe FLUSH 2.5 ml ASDIRECTED PRN Administration Keep Vein Open Discontinued Medications Generic Name Dose Route Start Last Admin Trade Name Daniel PRN Reason Stop Dose Admin Diphenhydramine HCl 25 mg 06/21/20 16:36 06/21/20 16:49 Diphenhydramine 50 Mg/Ml Sdv IVPUSH 06/21/20 16:37 25 mg ONETIME ONE Administration Fentanyl Confirm 06/21/20 15:12 06/21/20 15:14 Fentanyl 50 Mcg/Ml Sdv Administered 06/21/20 15:13 Not Given Dose 50 mcg .ROUTE .STK-MED ONE Fentanyl 50 mcg 06/21/20 15:15 06/21/20 15:17 Fentanyl 50 Mcg/Ml Sdv IVPUSH 06/21/20 15:16 50 mcg ONETIME ONE Administration Sodium Chloride 1,000 mls @ 1,000 mls/hr 06/21/20 14:57 06/21/20 15:15 Normal Saline IV 06/21/20 15:56 1,000 mls/hr .Bolus ONE Administration Sodium Chloride 1,000 mls @ 999 mls/hr 06/21/20 15:14 06/21/20 15:16 Normal Saline IV 06/21/20 16:14 999 mls/hr .Bolus ONE Administration Departure - Departure Time of Disposition: 17:01 Disposition: Refer to Observation Condition: Good Clinical Impression: Incomplete , Hemorrhage, Impending shock of cardiovascular system - Discharge Information Referrals: PCP,None [Primary Care Provider] - Forms: ED Department Discharge Sepsis Event Note (ED) - Evaluation Sepsis Screening Result: Possible Sepsis Risk - Focused Exam Vital Signs: Vital Signs Temp Pulse Resp BP Pulse Ox 06/21/20 16:39 93 154/69 H 98 06/21/20 16:05 105 H 163/114 H 100 06/21/20 15:49 104 H 125/89 98 06/21/20 15:34 88 131/66 99 06/21/20 15:17 96 18 134/72 98 06/21/20 14:48 35.9 C L 117 H 18 111/72 97 - My Orders Last 24 Hours: My Active Orders 06/21/20 14:50 Sodium Chloride 0.9% [Saline Flush] 10 ml FLUSH ASDIRECTED PRN Sodium Chloride 0.9% [Saline Flush] 2.5 ml FLUSH ASDIRECTED PRN Saline Lock Insert [OM.PC] Stat 06/21/20 14:56 RED BLOOD CELLS LP [BBK] Stat TYPE AND SCREEN [BBK] Stat 06/21/20 14:58 Communication Order [RC] STAT 06/21/20 15:04 Pelvis Non OB Ltd [US] Stat 06/21/20 15:10 Verify Patient Consent Obtain [RC] ASDIRECTED Transfuse Red Blood Cells [COMM] Stat 06/21/20 16:45 CORONAVIRUS COVID-19 HARRIETT [MOLEC] Stat - Assessment/Plan Last 24 Hours: My Active Orders 06/21/20 14:50 Sodium Chloride 0.9% [Saline Flush] 10 ml FLUSH ASDIRECTED PRN Sodium Chloride 0.9% [Saline Flush] 2.5 ml FLUSH ASDIRECTED PRN Saline Lock Insert [OM.PC] Stat 06/21/20 14:56 RED BLOOD CELLS LP [BBK] Stat TYPE AND SCREEN [BBK] Stat 06/21/20 14:58 Communication Order [RC] STAT 06/21/20 15:04 Pelvis Non OB Ltd [US] Stat 06/21/20 15:10 Verify Patient Consent Obtain [RC] ASDIRECTED Transfuse Red Blood Cells [COMM] Stat 06/21/20 16:45 CORONAVIRUS COVID-19 HARRIETT [MOLEC] Stat
[2020-06-21] MEDS ORDERED: fentaNYL 50 MCG/ML SDV ONE (15:12)
[2020-06-21] MEDS ORDERED: fentaNYL 50 MCG/ML SDV IVPUSH ONE (15:15)
[2020-06-21 15:52] LABS: BLOOD UREA NITROGEN,BUN 10 mg/dL (7.0-18.0); CARBON DIOXIDE,CO2 21.4 mmol/L (21.0-32.0); CHLORIDE,CL 102 mmol/L (98-107); GLUCOSE RANDOM 205 mg/dL (74-106); POTASSIUM,K 3.8 mmol/L (3.5-5.1); SODIUM,NA 137 mmol/L (136-145)
--- NOTE | 2020-06-21 16:30 | CR ---
INDICATION: Right-sided neck pain behind the year after fall. TECHNIQUE: Three views of the cervical spine, including a cross-table lateral. COMPARISON: None. FINDINGS: No fracture, subluxation or prevertebral soft tissue swelling. Slight reversal of the cervical lordosis. IMPRESSION: Unremarkable except for slight reversal of the lordosis. Dictated by Didier Peñaloza MD @ Jun 21 2020 4:26PM Signed by Dr. Didier Peñaloza @ Jun 21 2020 4:28PM
[2020-06-21] MEDS ORDERED: diphenhydrAMINE 50 MG/ML SDV IVPUSH ONE (16:36)
[2020-06-21] MEDS ORDERED: Ondansetron 4 MG/2 ML SDV ONE (17:12)
[2020-06-21] MEDS ORDERED: Lidocaine 2% 5 ML SDV ONE (17:12)
[2020-06-21] MEDS ORDERED: Glycopyrrolate 0.2 MG/ML SDV ONE (17:12)
[2020-06-21] MEDS ORDERED: Etomidate 2 MG/ML 20 ML SDV IVPUSH ONE (17:12)
[2020-06-21] MEDS ORDERED: Rocuronium Bromide 50 MG/5 ML Syringe ONE (17:12)
[2020-06-21] MEDS ORDERED: Midazolam 1 MG/ML 2 ML SDV ONE (17:13)
[2020-06-21] MEDS ORDERED: fentaNYL 100 MCG/2 ML SDV ONE (17:13)
--- NOTE | 2020-06-21 17:13 | PCM.SN.2 ---
- Free Text/Narrative Note: Sonogram reviewed--has thickened, heterogenous endometrium. No gestational sac or fetus identified. Findings consistent with retained products. Given remains tachycardic despite iv fluid hydration and still actively bleeding--advise proceeding with suction D&C. Glucose 205. Risks of procedure discussed including infection, bleeding, possible trauma to bowel/bladder, risk of anesthesia, risk of hysterectomy in life saving circumstances. Patient voices understanding and agrees to proceed. 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
[2020-06-21] MEDS ORDERED: Sugammadex Sodium 200 MG/2 ML VIAL ONE ×2 (17:16→17:59)
--- NOTE | 2020-06-21 17:16 | US ---
INDICATION: Retained products of conception. Missed AB. TECHNIQUE: Transvaginal scanning was performed to better evaluate the IUP and adnexa. Ovarian blood flow was evaluated with color-flow doppler. COMPARISON: None. FINDINGS: No intrauterine is demonstrated. Retained products of conception are demonstrated in the uterine cavity with a cavity measuring 34 mm in AP dimension. Color flow Doppler demonstrates blood flow within this tissue. The ovaries are normal is size and shape. The right ovary measures 2.7 x 2.5 x 1.6 cm and the left 3.6 x 2.6 x 2.6 cm. Ovarian blood flow is demonstrated with color-flow doppler. No adnexal mass or free fluid is apparent. IMPRESSION: Incomplete spontaneous AB with retained products of conception. Dictated by Didier Peñaloza MD @ Jun 21 2020 5:06PM Signed by Dr. Didier Peñaloza @ Jun 21 2020 5:14PM
[2020-06-21] MEDS ORDERED: Acetaminophen/oxyCODONE 325-5 MG Tab PO PRN (18:13)
[2020-06-21] MEDS ORDERED: fentaNYL 100 MCG/2 ML SDV IVPUSH PRN (18:14)
[2020-06-21] MEDS ORDERED: Acetaminophen 1,000 MG in Premix Bag 1 BAG IV PRN (18:14)
--- NOTE | 2020-06-21 18:14 | PCM.PREANE ---
Preanesthetic Assessment - Anesthesia/Transfusion/Family Hx Anesthesia History: Prior Anesthesia Without Reaction Family History of Anesthesia Reaction: No Transfusion History: No Prior Transfusion(s) Intubation History: Unknown - Physical Assessment NPO Status Date: 06/21/20 NPO Status Time: 00:05 Vital Signs: Last Vital Signs Temp 35.9 C L 06/21/20 14:48 Pulse 93 06/21/20 16:39 Resp 18 06/21/20 15:17 BP 154/69 H 06/21/20 16:39 Pulse Ox 98 06/21/20 16:39 Height: 1.75 m Weight: 108.862 kg ASA Class: 2E - Lab Values: Laboratory Last Values WBC 15.21 K/uL (4.0-11.0) H 06/21/20 14:55 RBC 3.96 M/uL (4.30-5.90) L 06/21/20 14:55 Hgb 12.0 g/dL (12.0-16.0) 06/21/20 14:55 Hct 35.1 % (36.0-46.0) L 06/21/20 14:55 MCV 88.6 fL (80.0-98.0) 06/21/20 14:55 MCH 30.3 pg (27.0-32.0) 06/21/20 14:55 MCHC 34.2 g/dL (31.0-37.0) 06/21/20 14:55 RDW Std Deviation 41.0 fl (28.0-62.0) 06/21/20 14:55 RDW Coeff of Kinjal 13 % (11.0-15.0) 06/21/20 14:55 Plt Count 360 K/uL (150-400) 06/21/20 14:55 MPV 8.70 fL (7.40-12.00) 06/21/20 14:55 Neut % (Auto) 69.3 % (48.0-80.0) 06/21/20 14:55 Lymph % (Auto) 21.7 % (16.0-40.0) 06/21/20 14:55 Riley % (Auto) 6.2 % (0.0-15.0) 06/21/20 14:55 Eos % (Auto) 2.5 % (0.0-7.0) 06/21/20 14:55 Baso % (Auto) 0.3 % (0.0-1.5) 06/21/20 14:55 Neut # (Auto) 10.6 K/uL (1.4-5.7) H 06/21/20 14:55 Lymph # (Auto) 3.3 K/uL (0.6-2.4) H 06/21/20 14:55 Riley # (Auto) 0.9 K/uL (0.0-0.8) H 06/21/20 14:55 Eos # (Auto) 0.4 K/uL (0.0-0.7) 06/21/20 14:55 Baso # (Auto) 0.0 K/uL (0.0-0.1) 06/21/20 14:55 Nucleated RBC % 0.0 /100WBC 06/21/20 14:55 Nucleated RBCs # 0 K/uL 06/21/20 14:55 Sodium 137 mmol/L (136-145) 06/21/20 14:55 Potassium 3.8 mmol/L (3.5-5.1) 06/21/20 14:55 Chloride 102 mmol/L (98-107) 06/21/20 14:55 Carbon Dioxide 21.4 mmol/L (21.0-32.0) 06/21/20 14:55 BUN 10 mg/dL (7.0-18.0) 06/21/20 14:55 Creatinine 0.9 mg/dL (0.6-1.0) 06/21/20 14:55 Est Cr Clr Drug Dosing 96.39 mL/min 06/21/20 14:55 Estimated GFR (MDRD) > 60.0 ml/min 06/21/20 14:55 Glucose 205 mg/dL (74-106) H 06/21/20 14:55 Calcium 8.5 mg/dL (8.5-10.1) 06/21/20 14:55 Total Bilirubin 0.3 mg/dL (0.2-1.0) 06/21/20 14:55 AST 18 IU/L (15-37) 06/21/20 14:55 ALT 22 IU/L (14-63) 06/21/20 14:55 Alkaline Phosphatase 57 U/L (46-116) 06/21/20 14:55 Total Protein 6.9 g/dL (6.4-8.2) 06/21/20 14:55 Albumin 3.0 g/dL (3.4-5.0) L 06/21/20 14:55 Globulin 3.9 g/dL (2.6-4.0) 06/21/20 14:55 Albumin/Globulin Ratio 0.8 (0.9-1.6) L 06/21/20 14:55 HCG, Quant 4970.0 mIU/mL 06/21/20 14:55 SARS-CoV-2 RNA ([facility]) NEGATIVE (NEGATIVE) 06/21/20 16:45 Blood Type O POSITIVE 06/21/20 14:56 Antibody Screen NEGATIVE 06/21/20 14:56 Crossmatch See Detail 06/21/20 14:56 - Allergies Allergies/Adverse Reactions: Allergies Allergy/AdvReac Type Severity Reaction Status Date / Time adhesive Allergy Rash Verified 06/21/20 14:47 [place] And Derivatives Allergy "throat Verified 06/21/20 14:47 swells" metformin Allergy Seizure Verified 06/21/20 14:47 aloe Allergy Nausea and Uncoded 06/21/20 14:47 Vomiting - Acknowledgements Anesthesia Type Planned: General Anesthesia Pt an Appropriate Candidate for the Planned Anesthesia: Yes Alternatives and Risks of Anesthesia Discussed w Pt/Guardian: Yes Pt/Guardian Understands and Agrees with Anesthesia Plan: Yes PreAnesthesia Questionnaire - Past Health History Medical/Surgical History: Denies Medical/Surgical History HEENT History: Reports: None Cardiovascular History: Reports: None Respiratory History: Reports: None Gastrointestinal History: Reports: GERD, Other (See Below) Other Gastrointestinal History: dysphagia Genitourinary History: Reports: Renal Calculus MEDICAL 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 SPECIALIST History: Reports: Polycystic Ovaries, Musculoskeletal History: Reports: Fracture Other Musculoskeletal History: fx foot Neurological History: Reports: Migraines, Seizure 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 Psychiatric History: Reports: None Endocrine/Metabolic History: Reports: Obesity/BMI 30+, Other (See Below) Other Endocrine/Metabolic History: "insulin resistant" Hematologic History: Reports: None Immunologic History: Reports: None Oncologic (Cancer) History: Reports: None Dermatologic History: Reports: None - Infectious Disease History 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, MRSA - Past Surgical History Head Surgeries/Procedures: Reports: None HEENT Surgical History: Reports: Oral Surgery Cardiovascular Surgical History: Reports: None Respiratory Surgical History: Reports: None GI Surgical History: Reports: None Female Surgical History: Reports: None Endocrine Surgical History: Reports: None Neurological Surgical History: Reports: None Musculoskeletal Surgical History: Reports: None Other Musculoskeletal Surgeries/Procedures:: LEFT THIGH TUMOR Oncologic Surgical History: Reports: None Dermatological Surgical History: Reports: Other (See Below) - SUBSTANCE USE Tobacco Use Status *Q: Former Tobacco User Recreational Drug Use History: No - HOME MEDS Home Medications: Home Meds Insulin Glarg,Human.Rec.Analog [Lantus] 12 units SQ ASDIRECTED PRN 09/08/17 [History] Insulin Aspart [NovoLOG] 1 dose SUBCUT ASDIRECTED 06/21/20 [History] - CURRENT (IN HOUSE) MEDS Current Meds: Current Medications Sodium Chloride (Sodium Chloride 0.9% 10 Ml Syringe) 10 ml FLUSH ASDIRECTED PRN PRN Reason: Keep Vein Open Last Admin: 06/21/20 15:16 Dose: 10 ml Documented by: Sodium Chloride (Sodium Chloride 0.9% 2.5 Ml Syringe) 2.5 ml FLUSH ASDIRECTED PRN PRN Reason: Keep Vein Open Last Admin: 06/21/20 15:16 Dose: 2.5 ml Documented by: Discontinued Medications Diphenhydramine HCl (Diphenhydramine 50 Mg/Ml Sdv) 25 mg IVPUSH ONETIME ONE Stop: 06/21/20 16:37 Last Admin: 06/21/20 16:49 Dose: 25 mg Documented by: Etomidate (Etomidate 2 Mg/Ml 20 Ml Sdv) Confirm Administered Dose 40 mg IVPUSH .STK-MED ONE Stop: 06/21/20 17:13 Fentanyl (Fentanyl 50 Mcg/Ml Sdv) Confirm Administered Dose 50 mcg .ROUTE .STK- MED ONE Stop: 06/21/20 15:13 Last Admin: 06/21/20 15:14 Dose: Not Given Documented by: Fentanyl (Fentanyl 50 Mcg/Ml Sdv) 50 mcg IVPUSH ONETIME ONE Stop: 06/21/20 15:16 Last Admin: 06/21/20 15:17 Dose: 50 mcg Documented by: Fentanyl (Fentanyl 100 Mcg/2 Ml Sdv) Confirm Administered Dose 100 mcg .ROUTE .STK-MED ONE Stop: 06/21/20 17:14 Glycopyrrolate (Glycopyrrolate 0.2 Mg/Ml Sdv) Confirm Administered Dose 0.2 mg .ROUTE .STK-MED ONE Stop: 06/21/20 17:13 Sodium Chloride (Normal Saline) 1,000 mls @ 1,000 mls/hr IV .Bolus ONE Stop: 06/21/20 15:56 Last Admin: 06/21/20 15:15 Dose: 1,000 mls/hr Documented by: Sodium Chloride (Normal Saline) 1,000 mls @ 999 mls/hr IV .Bolus ONE Stop: 06/21/20 16:14 Last Admin: 06/21/20 15:16 Dose: 999 mls/hr Documented by: Lidocaine (Lidocaine 2% 5 Ml Sdv) Confirm Administered Dose 5 ml .ROUTE .STK-MED ONE Stop: 06/21/20 17:13 Midazolam HCl (Midazolam 1 Mg/Ml 2 Ml Sdv) Confirm Administered Dose 2 mg .ROUTE .STK-MED ONE Stop: 06/21/20 17:14 Ondansetron HCl (Ondansetron 4 Mg/2 Ml Sdv) Confirm Administered Dose 4 mg .ROUTE .STK-MED ONE Stop: 06/21/20 17:13 Rocuronium [place] (Rocuronium [place] 50 Mg/5 Ml Syringe) Confirm Administered Dose 50 mg .ROUTE .STK-MED ONE Stop: 06/21/20 17:13 Sugammadex Sodium (Sugammadex Sodium 200 Mg/2 Ml Vial) Confirm Administered Dose 200 mg .ROUTE .STK-MED ONE Stop: 06/21/20 17:17 Sugammadex Sodium (Sugammadex Sodium 200 Mg/2 Ml Vial) Confirm Administered Dose 200 mg .ROUTE .STK-MED ONE Stop: 06/21/20 18:00 Tranexamic Acid (Tranexamic Acid 1,000 Mg/10 Ml Amp) Confirm Administered Dose 1,000 mg .ROUTE .STK-MED ONE Stop: 06/21/20 17:52
--- NOTE | 2020-06-21 18:24 | PCM.OPNOTE ---
- General Post-Op/Procedure Note Date of Surgery/Procedure: 06/21/20 Operative Procedure(s): Suction D&C Findings: Products of conception Pre Op Diagnosis: Incomplete spontaneous with hemorrhage Post-Op Diagnosis: Same Anesthesia Technique: General ET Tube Primary Surgeon: Nargis Alvarado Pathology: products of conception Fluid Replacement, Intraop: 2,000 EBL in mLs: 200 Complications: none known Condition: Stable Free Text/Narrative:: Dictation [id number]
--- NOTE | 2020-06-21 18:40 | PCM.POSTAN ---
POST ANESTHESIA ASSESSMENT - MENTAL STATUS Mental Status: Alert - VITAL SIGNS Vital Signs: Last Vital Signs Temp 36.2 C 06/21/20 18:05 Pulse 85 06/21/20 18:35 Resp 14 06/21/20 18:35 BP 103/52 L 06/21/20 18:35 Pulse Ox 95 06/21/20 18:35 - RESPIRATORY Respiratory Status: Respiratory Rate WNL - CARDIOVASCULAR CV Status: Pulse Rate WNL - GASTROINTESTINAL GI Status: No Symptoms - POST OP HYDRATION Hydration Status: Adequate & Stable
--- NOTE | 2020-06-21 19:04 | OR ---
SURGEON: Nargis Alvarado M.D. DATE OF PROCEDURE: 06/21/2020 PREOPERATIVE DIAGNOSIS: Incomplete spontaneous with hemorrhage. POSTOPERATIVE DIAGNOSIS: Incomplete spontaneous with hemorrhage. PROCEDURE: Suction D and C. PRIMARY SURGEON: Nargis Alvarado M.D. ANESTHESIA: General endotracheal anesthesia. FLUIDS: 2000 mL of crystalloid. ESTIMATED BLOOD LOSS: 300 mL. COMPLICATIONS: None known. FINDINGS: Products of conception. DISPOSITION: The patient to PACU, stable. SPECIMENS: To Pathology. PROCEDURE DETAILS: The is a 29-year-old, G7, P1-0-6-1, who is supposed to be approximately 6 weeks when she was diagnosed with a missed on 06/16/2020. At that time, she had opted to follow conservatively with hope for spontaneous resolution. She began cramping yesterday and then this morning began bleeding. 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 She did not take her insulin today. Upon arrival to the ER early this afternoon, pulses were in the 120s, she was pale, not feeling well, lightheaded, dizzy, she passed out upon getting out of the shower. She did not hit her head. She is moving all joints and extremities without any issue. While in the ER, the patient continues to bleed. Sonogram reveals that there is no longer embryo gestation in the uterine cavity, however, there was a large amount of heterogeneous tissue with increased vascularity consistent with products of conception. Hemoglobin remained 12 at this point. She received IV fluid resuscitation. She is COVID negative. Given the persistent bleeding and her abnormal vital signs, I have discussed with her proceeding with suction D and C. Risks of procedure have been discussed including infection; bleeding; possible trauma to surrounding bowel, bladder, ureters; in case of excessive blood loss, need for blood product transfusion; in rare lifesaving circumstances, need for hysterectomy; risk for thromboembolic event. She voiced her understanding. She agreed to proceed. The patient was taken to the operating room where she underwent general endotracheal anesthesia, was placed in modified dorsal lithotomy position and was prepped and draped in the usual sterile fashion. Bladder was drained. Time-out was performed. A weighted speculum was introduced in the vagina. There were products of conception at the os. Using an 8 mm curved curette, this was gently introduced to the fundus. Once suction was in the green zone, was able to begin emptying the uterine cavity of products of conception, continued in this manner with the curved curette under suction until the uterine cavity felt satisfactorily evacuated. Gentle sharp curettage was performed. This did help confirm that the cavity appeared to be appropriately evacuated. Hemostasis appeared evident at this time. Specimens will be sent to pathology. The patient received 20 units of Pitocin IV and a gram of tranexamic acid while in the OR. All instruments were removed from the vagina. Sponge and instrument count was correct. The patient will go to the PACU in fair condition, specimen to Pathology. We will monitor her closely in the next couple of hours and reevaluate her hemoglobin at 8 p.m. SHEA WHITAKER /[id number]
[2020-06-21] MEDS: Lactated Ringers 1,000 ML IV SCH (19:16)
[2020-06-22] MEDS: Lactated Ringers 1,000 ML IV SCH (04:06)
--- NOTE | 2020-06-22 07:10 | PCM48HPAN ---
Post Anesthesia Note - EVALUATION WITHIN 48HRS OF ANESTHETIC Vital Signs in Normal Range: Yes Patient Participated in Evaluation: Yes Respiratory Function Stable: Yes Airway Patent: Yes Cardiovascular Function Stable: Yes (Some Hypotension due to anemia) Hydration Status Stable: Yes Pain Control Satisfactory: Yes Nausea and Vomiting Control Satisfactory: Yes Mental Status Recovered: Yes Vital Signs: Last Vital Signs Temp 37.2 C 06/22/20 03:58 Pulse 95 06/22/20 03:58 Resp 14 06/22/20 03:58 BP 101/47 L 06/22/20 03:58 Pulse Ox 96 06/22/20 03:58 Orthostatic Blood Pressure [ 111/62 Standing] Orthostatic Blood Pressure [ 135/67 Sitting] Orthostatic Blood Pressure [ 114/59 Supine]
[2020-06-22 12:22] VITALS: BP 104/56; PULSE 98
--- NOTE | 2020-06-22 12:32 | PCM.SURGPN ---
- General Info Date of Service: 06/22/20 POD#: 1 Functional Status: Reports: Pain Controlled, Tolerating Diet, Ambulating, Urinating - Review of Systems General: Reports: Fatigue. Denies: Fever, Weakness Pulmonary: Denies: Shortness of Breath Cardiovascular: Denies: Chest Pain, Palpitations, Lightheadedness Gastrointestinal: Denies: Abdominal Pain, Nausea, Vomiting Genitourinary: Reports: No Symptoms Musculoskeletal: Reports: No Symptoms Skin: Reports: No Symptoms Neurological: Reports: No Symptoms Psychiatric: Reports: No Symptoms - Patient Data Vitals - Most Recent: Last Vital Signs Temp 36.8 C 06/22/20 12:19 Pulse 98 06/22/20 12:19 Resp 14 06/22/20 11:35 BP 104/56 L 06/22/20 12:19 Pulse Ox 96 06/22/20 11:05 Orthostatic Blood Pressure [ 111/62 Standing] Orthostatic Blood Pressure [ 135/67 Sitting] Orthostatic Blood Pressure [ 114/59 Supine] Weight - Most Recent: 108.862 kg I&O - Last 24 Hours: Intake & Output 06/21/20 06/22/20 06/22/20 22:59 06:59 14:59 Intake Total 4100 2100 497 Output Total 300 900 Balance 3800 1200 497 Lab Results Last 24 Hrs: Laboratory Results - last 24 hr 06/21/20 06/21/20 06/21/20 Range/Units 14:55 14:55 14:56 WBC 15.21 H (4.0-11.0) K/uL RBC 3.96 L (4.30-5.90) M/uL Hgb 12.0 (12.0-16.0) g/dL Hct 35.1 L (36.0-46.0) % MCV 88.6 (80.0-98.0) fL MCH 30.3 (27.0-32.0) pg MCHC 34.2 (31.0-37.0) g/dL RDW Std Deviation 41.0 (28.0-62.0) fl RDW Coeff of Kinjal 13 (11.0-15.0) % Plt Count 360 (150-400) K/uL MPV 8.70 (7.40-12.00) fL Neut % (Auto) 69.3 (48.0-80.0) % Lymph % (Auto) 21.7 (16.0-40.0) % Martin % (Auto) 6.2 (0.0-15.0) % Eos % (Auto) 2.5 (0.0-7.0) % Baso % (Auto) 0.3 (0.0-1.5) % Neut # (Auto) 10.6 H (1.4-5.7) K/uL Lymph # (Auto) 3.3 H (0.6-2.4) K/uL Martin # (Auto) 0.9 H (0.0-0.8) K/uL Eos # (Auto) 0.4 (0.0-0.7) K/uL Baso # (Auto) 0.0 (0.0-0.1) K/uL Nucleated RBC % 0.0 /100WBC Nucleated RBCs # 0 K/uL Sodium 137 (136-145) mmol/L Potassium 3.8 (3.5-5.1) mmol/L Chloride 102 (98-107) mmol/L Carbon Dioxide 21.4 (21.0-32.0) mmol/L BUN 10 (7.0-18.0) mg/dL Creatinine 0.9 (0.6-1.0) mg/dL Est Cr Clr Drug Dosing 96.39 mL/min Estimated GFR (MDRD) > 60.0 ml/min Glucose 205 H (74-106) mg/dL POC Glucose (60-110) mg/dL Calcium 8.5 (8.5-10.1) mg/dL Total Bilirubin 0.3 (0.2-1.0) mg/dL AST 18 (15-37) IU/L ALT 22 (14-63) IU/L Alkaline Phosphatase 57 (46-116) U/L Total Protein 6.9 (6.4-8.2) g/dL Albumin 3.0 L (3.4-5.0) g/dL Globulin 3.9 (2.6-4.0) g/dL Albumin/Globulin Ratio 0.8 L (0.9-1.6) HCG, Quant 4970.0 mIU/mL SARS-CoV-2 RNA ([facility]) (NEGATIVE) Blood Type O POSITIVE Antibody Screen NEGATIVE Crossmatch See Detail 06/21/20 06/21/20 06/21/20 Range/Units 16:45 18:26 20:40 WBC (4.0-11.0) K/uL RBC (4.30-5.90) M/uL Hgb 9.2 L (12.0-16.0) g/dL Hct 27.6 L (36.0-46.0) % MCV (80.0-98.0) fL MCH (27.0-32.0) pg MCHC (31.0-37.0) g/dL RDW Std Deviation (28.0-62.0) fl RDW Coeff of Kinjal (11.0-15.0) % Plt Count (150-400) K/uL MPV (7.40-12.00) fL Neut % (Auto) (48.0-80.0) % Lymph % (Auto) (16.0-40.0) % Martin % (Auto) (0.0-15.0) % Eos % (Auto) (0.0-7.0) % Baso % (Auto) (0.0-1.5) % Neut # (Auto) (1.4-5.7) K/uL Lymph # (Auto) (0.6-2.4) K/uL Martin # (Auto) (0.0-0.8) K/uL Eos # (Auto) (0.0-0.7) K/uL Baso # (Auto) (0.0-0.1) K/uL Nucleated RBC % /100WBC Nucleated RBCs # K/uL Sodium (136-145) mmol/L Potassium (3.5-5.1) mmol/L Chloride (98-107) mmol/L Carbon Dioxide (21.0-32.0) mmol/L BUN (7.0-18.0) mg/dL Creatinine (0.6-1.0) mg/dL Est Cr Clr Drug Dosing mL/min Estimated GFR (MDRD) ml/min Glucose (74-106) mg/dL POC Glucose 167 H (60-110) mg/dL Calcium (8.5-10.1) mg/dL Total Bilirubin (0.2-1.0) mg/dL AST (15-37) IU/L ALT (14-63) IU/L Alkaline Phosphatase (46-116) U/L Total Protein (6.4-8.2) g/dL Albumin (3.4-5.0) g/dL Globulin (2.6-4.0) g/dL Albumin/Globulin Ratio (0.9-1.6) HCG, Quant mIU/mL SARS-CoV-2 RNA ([facility]) NEGATIVE (NEGATIVE) Blood Type Antibody Screen Crossmatch 06/21/20 06/22/20 06/22/20 Range/Units 22:04 06:00 06:18 WBC (4.0-11.0) K/uL RBC (4.30-5.90) M/uL Hgb 7.1 L (12.0-16.0) g/dL Hct 21.3 L (36.0-46.0) % MCV (80.0-98.0) fL MCH (27.0-32.0) pg MCHC (31.0-37.0) g/dL RDW Std Deviation (28.0-62.0) fl RDW Coeff of Kinjal (11.0-15.0) % Plt Count (150-400) K/uL MPV (7.40-12.00) fL Neut % (Auto) (48.0-80.0) % Lymph % (Auto) (16.0-40.0) % Martin % (Auto) (0.0-15.0) % Eos % (Auto) (0.0-7.0) % Baso % (Auto) (0.0-1.5) % Neut # (Auto) (1.4-5.7) K/uL Lymph # (Auto) (0.6-2.4) K/uL Martin # (Auto) (0.0-0.8) K/uL Eos # (Auto) (0.0-0.7) K/uL Baso # (Auto) (0.0-0.1) K/uL Nucleated RBC % /100WBC Nucleated RBCs # K/uL Sodium (136-145) mmol/L Potassium (3.5-5.1) mmol/L Chloride (98-107) mmol/L Carbon Dioxide (21.0-32.0) mmol/L BUN (7.0-18.0) mg/dL Creatinine (0.6-1.0) mg/dL Est Cr Clr Drug Dosing mL/min Estimated GFR (MDRD) ml/min Glucose (74-106) mg/dL POC Glucose 164 H 129 H (60-110) mg/dL Calcium (8.5-10.1) mg/dL Total Bilirubin (0.2-1.0) mg/dL AST (15-37) IU/L ALT (14-63) IU/L Alkaline Phosphatase (46-116) U/L Total Protein (6.4-8.2) g/dL Albumin (3.4-5.0) g/dL Globulin (2.6-4.0) g/dL Albumin/Globulin Ratio (0.9-1.6) HCG, Quant mIU/mL SARS-CoV-2 RNA ([facility]) (NEGATIVE) Blood Type Antibody Screen Crossmatch 06/22/20 Range/Units 10:57 WBC (4.0-11.0) K/uL RBC (4.30-5.90) M/uL Hgb (12.0-16.0) g/dL Hct (36.0-46.0) % MCV (80.0-98.0) fL MCH (27.0-32.0) pg MCHC (31.0-37.0) g/dL RDW Std Deviation (28.0-62.0) fl RDW Coeff of Kinjal (11.0-15.0) % Plt Count (150-400) K/uL MPV (7.40-12.00) fL Neut % (Auto) (48.0-80.0) % Lymph % (Auto) (16.0-40.0) % Martin % (Auto) (0.0-15.0) % Eos % (Auto) (0.0-7.0) % Baso % (Auto) (0.0-1.5) % Neut # (Auto) (1.4-5.7) K/uL Lymph # (Auto) (0.6-2.4) K/uL Martin # (Auto) (0.0-0.8) K/uL Eos # (Auto) (0.0-0.7) K/uL Baso # (Auto) (0.0-0.1) K/uL Nucleated RBC % /100WBC Nucleated RBCs # K/uL Sodium (136-145) mmol/L Potassium (3.5-5.1) mmol/L Chloride (98-107) mmol/L Carbon Dioxide (21.0-32.0) mmol/L BUN (7.0-18.0) mg/dL Creatinine (0.6-1.0) mg/dL Est Cr Clr Drug Dosing mL/min Estimated GFR (MDRD) ml/min Glucose (74-106) mg/dL POC Glucose 126 H (60-110) mg/dL Calcium (8.5-10.1) mg/dL Total Bilirubin (0.2-1.0) mg/dL AST (15-37) IU/L ALT (14-63) IU/L Alkaline Phosphatase (46-116) U/L Total Protein (6.4-8.2) g/dL Albumin (3.4-5.0) g/dL Globulin (2.6-4.0) g/dL Albumin/Globulin Ratio (0.9-1.6) HCG, Quant mIU/mL SARS-CoV-2 RNA ([facility]) (NEGATIVE) Blood Type Antibody Screen Crossmatch Med Orders - Current: Current Medications Fentanyl (Fentanyl 100 Mcg/2 Ml Sdv) 50 mcg IVPUSH Q5M PRN PRN Reason: Pain Lactated Ringer's (Ringers, Lactated) 1,000 mls @ 125 mls/hr IV ASDIRECTED [facility] Last Admin: 06/22/20 04:06 Dose: 125 mls/hr Documented by: Oxycodone/Acetaminophen (Acetaminophen/Oxycodone 325-5 Mg Tab) 1 tab PO Q4H PRN PRN Reason: Pain Sodium Chloride (Sodium Chloride 0.9% 10 Ml Syringe) 10 ml FLUSH ASDIRECTED PRN PRN Reason: Keep Vein Open Last Admin: 06/21/20 15:16 Dose: 10 ml Documented by: Sodium Chloride (Sodium Chloride 0.9% 2.5 Ml Syringe) 2.5 ml FLUSH ASDIRECTED PRN PRN Reason: Keep Vein Open Last Admin: 06/21/20 15:16 Dose: 2.5 ml Documented by: Discontinued Medications Diphenhydramine HCl (Diphenhydramine 50 Mg/Ml Sdv) 25 mg IVPUSH ONETIME ONE Stop: 06/21/20 16:37 Last Admin: 06/21/20 16:49 Dose: 25 mg Documented by: Etomidate (Etomidate 2 Mg/Ml 20 Ml Sdv) Confirm Administered Dose 40 mg IVPUSH .STK-MED ONE Stop: 06/21/20 17:13 Fentanyl (Fentanyl 50 Mcg/Ml Sdv) Confirm Administered Dose 50 mcg .ROUTE .STK- MED ONE Stop: 06/21/20 15:13 Last Admin: 06/21/20 15:14 Dose: Not Given Documented by: Fentanyl (Fentanyl 50 Mcg/Ml Sdv) 50 mcg IVPUSH ONETIME ONE Stop: 06/21/20 15:16 Last Admin: 06/21/20 15:17 Dose: 50 mcg Documented by: Fentanyl (Fentanyl 100 Mcg/2 Ml Sdv) Confirm Administered Dose 100 mcg .ROUTE .STK-MED ONE Stop: 06/21/20 17:14 Glycopyrrolate (Glycopyrrolate 0.2 Mg/Ml Sdv) Confirm Administered Dose 0.2 mg .ROUTE .STK-MED ONE Stop: 06/21/20 17:13 Sodium Chloride (Normal Saline) 1,000 mls @ 1,000 mls/hr IV .Bolus ONE Stop: 06/21/20 15:56 Last Admin: 06/21/20 15:15 Dose: 1,000 mls/hr Documented by: Sodium Chloride (Normal Saline) 1,000 mls @ 999 mls/hr IV .Bolus ONE Stop: 06/21/20 16:14 Last Admin: 06/21/20 15:16 Dose: 999 mls/hr Documented by: Acetaminophen 1,000 mg/ Premix 100 mls @ 400 mls/hr IV Q6H PRN PRN Reason: Pain Lidocaine (Lidocaine 2% 5 Ml Sdv) Confirm Administered Dose 5 ml .ROUTE .STK-MED ONE Stop: 06/21/20 17:13 Midazolam HCl (Midazolam 1 Mg/Ml 2 Ml Sdv) Confirm Administered Dose 2 mg .ROUTE .STK-MED ONE Stop: 06/21/20 17:14 Ondansetron HCl (Ondansetron 4 Mg/2 Ml Sdv) Confirm Administered Dose 4 mg .ROUTE .STK-MED ONE Stop: 06/21/20 17:13 Rocuronium [place] (Rocuronium [place] 50 Mg/5 Ml Syringe) Confirm Administered Dose 50 mg .ROUTE .STK-MED ONE Stop: 06/21/20 17:13 Sugammadex Sodium (Sugammadex Sodium 200 Mg/2 Ml Vial) Confirm Administered Dose 200 mg .ROUTE .STK-MED ONE Stop: 06/21/20 17:17 Sugammadex Sodium (Sugammadex Sodium 200 Mg/2 Ml Vial) Confirm Administered Dose 200 mg .ROUTE .STK-MED ONE Stop: 06/21/20 18:00 Tranexamic Acid (Tranexamic Acid 1,000 Mg/10 Ml Amp) Confirm Administered Dose 1,000 mg .ROUTE .STK-MED ONE Stop: 06/21/20 17:52 - Exam General: Alert, Oriented Lungs: Normal Respiratory Effort Cardiovascular: Regular Rate, Regular Rhythm GI/Abdominal Exam: Normal Bowel Sounds, Soft Extremities: Pedal Edema (1+), Pallor. No: Vandana's Sign Skin: Warm, Dry, Intact Neurological: No New Focal Deficit Psy/Mental Status: Alert, Normal Affect, Normal Mood Sepsis Event Note - Evaluation Sepsis Screening Result: No Definite Risk - Focused Exam Vital Signs: Vital Signs Temp Temp Pulse Resp BP Pulse Ox 06/22/20 12:19 36.8 C 98 104/56 L 06/22/20 11:35 36.7 C 102 H 14 121/57 L 06/22/20 11:19 37.1 C 100 16 121/57 L 06/22/20 11:05 36.8 C 100 16 113/51 L 96 06/22/20 10:12 36.7 C 100 14 101/47 L 97 06/22/20 08:16 36.8 C 109 H 16 109/65 98 06/22/20 08:01 36.3 C 115 H 16 100/49 L 98 06/22/20 07:42 36.8 C 108 H 16 125/57 L 97 06/22/20 06:15 36.6 C 111 H 18 113/63 98 06/22/20 03:58 37.2 C 95 14 101/47 L 96 - Problem List & Annotations (1) Incomplete SNOMED Code(s): 072136091 Code(s): O03.4 - INCOMPLETE SPONTANEOUS WITHOUT COMPLICATION Status: Acute Current Visit: Yes - Problem List Review Problem List Initiated/Reviewed/Updated: Yes - My Orders Last 24 Hours: Active Orders 24 hr Category Date Time Status Patient Status [ADT] Routine ADT 06/21/20 17:07 Active Patient Status [ADT] Routine ADT 06/21/20 18:13 Active Antiembolic Devices [RC] PER UNIT ROUTINE Care 06/21/20 17:08 Active Communication Order [RC] STAT Care 06/21/20 14:58 Active Notify Provider Intake and Out [RC] PRN Care 06/21/20 18:14 Active Notify Provider Vital Signs [RC] PRN Care 06/21/20 18:14 Active Ready for Discharge [RC] PER UNIT ROUTINE Care 06/21/20 22:03 Active Vital Signs [RC] PER UNIT ROUTINE Care 06/21/20 17:07 Active Regular Diet [DIET] Diet 06/21/20 Dinner Active Acetaminophen/oxyCODONE [Percocet 325-5 MG] Med 06/21/20 18:13 Active 1 tab PO Q4H PRN Lactated Ringers [Ringers, Lactated] 1,000 ml Med 06/21/20 18:15 Active IV ASDIRECTED Sodium Chloride 0.9% [Saline Flush] Med 06/21/20 14:50 Active 10 ml FLUSH ASDIRECTED PRN Sodium Chloride 0.9% [Saline Flush] Med 06/21/20 14:50 Active 2.5 ml FLUSH ASDIRECTED PRN fentaNYL [Sublimaze] Med 06/21/20 18:14 Active 50 mcg IVPUSH Q5M PRN Saline Lock Insert [OM.PC] Stat Oth 06/21/20 14:50 Ordered Sequential Compression Device [OM.PC] Per Unit Routine Oth 06/21/20 17:07 Ordered Transfuse PRBC [Transfuse Red Blood Cells] [COMM] Oth 06/22/20 07:53 Ordered Urgent Transfuse Red Blood Cells [COMM] Stat Oth 06/21/20 15:10 Ordered Resuscitation Status Routine Resus Stat 06/21/20 18:13 Ordered Medication Orders Fentanyl (Fentanyl 100 Mcg/2 Ml Sdv) 50 mcg IVPUSH Q5M PRN PRN Reason: Pain Lactated Ringer's (Ringers, Lactated) 1,000 mls @ 125 mls/hr IV ASDIRECTED [facility] Last Admin: 06/22/20 04:06 Dose: 125 mls/hr Documented by: Infusion: 06/22/20 03:16 Dose: 125 mls/hr Documented by: Admin: 06/21/20 19:16 Dose: 125 mls/hr Documented by: AMY Oxycodone/Acetaminophen (Acetaminophen/Oxycodone 325-5 Mg Tab) 1 tab PO Q4H PRN PRN Reason: Pain Sodium Chloride (Sodium Chloride 0.9% 10 Ml Syringe) 10 ml FLUSH ASDIRECTED PRN PRN Reason: Keep Vein Open Last Admin: 06/21/20 15:16 Dose: 10 ml Documented by: ALISHA Sodium Chloride (Sodium Chloride 0.9% 2.5 Ml Syringe) 2.5 ml FLUSH ASDIRECTED PRN PRN Reason: Keep Vein Open Last Admin: 06/21/20 15:16 Dose: 2.5 ml Documented by: ALISHA - Assessment Assessment (Free Text/Narrative):: POD 1 s/p suction D&C incomplete with hemorrhage Diabetes - Plan Plan (Free Text/Narrative):: Patient remained orthostatic last night. Reevaluated hemoglobin this am and 7.1. Thus receiving 2 U PRBCs--patient is on 2nd unit and states all ready feeling so much better. She has no vaginal bleeding this morning. VS are stable currently. She feels ready to go home this afternoon. Discharge instructions reviewed. Follow up as scheduled at [facility]> Will reevaluate hemoglobin at that time. She is to rest, stay well hydrated, pelvic rest, and take iron as prescribed. Discharge to home after completion of blood product transfusion.
== END 2020-06-22 14:03 | disposition home or self-care (01) ==
LOC: MW.ED 14:41 → MW.SDS 17:07 → MW.MS 18:54 → MW.SDS 06-22 14:03
PROVIDERS: ATTEND Obstetrics & Gynecology
DX: O03.1 Delayed or excessive hemorrhage following incomplete spontaneous abortion (principal); E11.9 Type 2 diabetes mellitus without complications; E66.9 Obesity, unspecified; Z68.35 Body mass index [BMI] 35.0-35.9, adult; Z01.812 Encounter for preprocedural laboratory examination; Z20.822 Contact with and (suspected) exposure to COVID-19; Z88.8 Allergy status to other drugs, medicaments and biological substances; Z91.09 Other allergy status, other than to drugs and biological substances; Z79.4 Long term (current) use of insulin; Z87.891 Personal history of nicotine dependence; Z87.442 Personal history of urinary calculi; Z98.890 Other specified postprocedural states
CPT/HCPCS: 36415; 36430; 59812; 72040; 76857; 80053; 82962; 84702; 85014; 85018; 85025; 86850; 86900; 86901; 86920; 86921; 86922; 87635; 88305; 96374; 96375; 99285; J1200; J2250; J2405; J3010; J3490; J7030; J7120; P9016; 01965; U0002

== ENCOUNTER 2020-11-03 20:19 | Emergency (ER) | payer OTHER ==
[2020-11-03 20:37] VITALS: BP 146/94; PULSE 84
[2020-11-03] MEDS ORDERED: Ketorolac 60 MG/2 ML SDV IM ONE (20:50)
--- NOTE | 2020-11-03 20:55 | EDM.PDOC ---
ED HPI GENERAL MEDICAL PROBLEM - General Chief Complaint: Neck Problem Stated Complaint: NECK PAIN AND SWELLING, HURTS TO SWALLOW Time Seen by Provider: 11/03/20 20:48 Source of Information: Reports: Patient History Limitations: Reports: No Limitations - History of Present Illness INITIAL COMMENTS - FREE TEXT/NARRATIVE: HISTORY AND PHYSICAL: History of present illness: Patient is a 30-year-old female who presents to the emergency room with complaints of neck pain. She states yesterday she was playing with a bungee type cord and while she was going full speed forward had fallen hit her head and had a whiplash type injury. She did not lose consciousness. States she had a mild headache afterwards. This morning she is unable to move her neck and states she feels it is swollen. She is palpating to the anterior and posterior neck stating "it all hurts". She did call a nursing hotline who recommended she come in "within [address] a CT scan". She has not had any difficulty breathing, swallowing saliva, or difficulty with speech Review of systems: As per history of present illness and below otherwise all systems reviewed and negative. Past medical history: As per history of present illness and as reviewed below otherwise noncontributory. Surgical history: As per history of present illness and as reviewed below otherwise noncontributory. Social history: See social history for further information Family history: As per history of present illness and as reviewed below otherwise noncontributory. Physical exam: General: Well developed and well nourished 30 year old female. Alert and orientated x 3. Nontoxic in appearance and in no acute distress. Vital signs are stable and have been reviewed by me. Nursing notes were reviewed. HEENT: Atraumatic, normocephalic, pupils equal and reactive bilaterally, negative for conjunctival pallor or scleral icterus, mucous membranes moist, TMs normal bilaterally, throat clear with no soft tissue swelling noted, neck supple, nontender, trachea midline. No drooling or trismus noted. No meningeal signs. No hot potato voice noted. Clear speech. Lungs: Clear to auscultation bilaterally. No wheezes, rales, or rhonchi. Chest nontender. Normal work of breathing, no accessory muscles used. Heart: S1S2, regular rate and rhythm. No peripheral edema Abdomen: Soft, nondistended, nontender. Normoactive bowel sounds. Negative for masses or costovertebral tenderness. Pelvis: Stable nontender. C-spine/Back: No pinpoint vertebral tenderness upon palpation. No crepitus, step-offs or obvious deformities. Patient is ambulatory into the emergency room without difficulty or deficit. Able to rock back on heels and walk on toes. Denies any urinary or fecal incontinence. Denies any numbness, tingling or saddle paresthesia. No concerns of serious infection, fracture or cord compression, or cauda equina syndrome. Deep tendon reflexes brisk bilaterally. Skin: Intact, warm, dry. No lesions or rashes noted. Hematologic: No petechiae or purpra. Mucosa appropriate color and normal nail bed color and refill. Extremities: Moves all extremities per self without difficulty or deficits, negative for cords or calf pain. Neurovascular unremarkable. Neuro: Awake, alert, oriented. Cranial nerves II through XII unremarkable. Cerebellum unremarkable. Motor and sensory unremarkable throughout. Exam nonfocal. Psychiatric: Mood and affect are appropriate. Normal thought process. Answering questions appropriately. Notes: *This patient was seen and evaluated during the 2019 SARS-CoV-2 novel coronavirus pandemic period. Community viral transmission is ongoing at time of this encounter and the emergency department is operating under pandemic response procedures. Patient is a 30-year-old female who presents to the emergency room with complaints of neck pain. She states yesterday she had a whiplash type injury in which she hit her head. Woke up with generalized neck pain. Increased pain with range of motion. She states she feels like the soft tissue is swollen. This all occurred after hitting her head. We did discuss possible diagnostics along with treating her with a muscle relaxer. She would like a CT scan and basic labs done at this time. CT of head shows no acute intracranial process.CT neck shows reversal the normal cervical lordosis which can be seen with muscle sprain. Patient is neurol ogically intact. Airway remains patent and vital signs are stable. I have talked with the patient about today's findings, in addition to providing specific details for plan of care. Reassessment at the time of disposition demonstrates that the patient is in no acute distress. The patient is stable for discharge, counseling was provided and we discussed in great detail signs and symptoms that would prompt them to return to the Emergency Department. Medication, follow up and supportive care measures were reviewed and discussed. Voices understanding and is agreeable to plan of care. Denies any further questions or concerns at this time. Diagnostics: CBC, CMP, strep, head CT, cervical spine CT Therapeutics: Toradol IM Prescription: Flexeril Impression: Cervical sprain Plan: 1. You were seen today on an emergent basis. Your CT scans are normal although does show a cervical muscle sprain. Your blood work is normal. 2. When resting please lay on a flat firm surface. Limit your immobility to prevent muscle stiffness. Get up to ambulate/move around/gentle stretching multiple times throughout the day. May alternate heat and ice to the painful areas 3. Tylenol and ibuprofen as needed for neck pain. Otherwise take the prescribed Flexeril as directed. I would take ibuprofen with food routinely over the next few days. Flexeril as a muscle relaxant, this medication may cause drowsiness a do not take it will driving her needing to be functioning outside of the house. 4. Please follow-up with your primary care provider as we discussed. Return to the ED as needed and as discussed. Definitive disposition and diagnosis as appropriate pending reevaluation and review of above. Neck Pain Score (Numeric/FACES): 6 - Related Data Allergies Allergy/AdvReac Type Severity Reaction Status Date / Time adhesive Allergy Rash Verified 11/03/20 20:37 [place] And Derivatives Allergy "throat Verified 11/03/20 20:37 swells" metformin Allergy Seizure Verified 11/03/20 20:37 aloe Allergy Nausea and Uncoded 11/03/20 20:37 Vomiting Home Meds: Home Meds Insulin Glarg,Human.Rec.Analog [Lantus] 12 units SQ ASDIRECTED PRN 09/08/17 [History] Insulin Aspart [NovoLOG] 1 dose SUBCUT ASDIRECTED 06/21/20 [History] Past Medical History - Past Health History Medical/Surgical History: Denies Medical/Surgical History HEENT History: Reports: None Cardiovascular History: Reports: None Respiratory History: Reports: None Gastrointestinal History: Reports: GERD, Other (See Below) Other Gastrointestinal History: dysphagia Genitourinary History: Reports: Renal Calculus RACING 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 History: Reports: Polycystic Ovaries, Musculoskeletal History: Reports: Fracture Other Musculoskeletal History: fx foot Neurological History: Reports: Migraines, Seizure 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 Psychiatric History: Reports: None Endocrine/Metabolic History: Reports: Obesity/BMI 30+, Other (See Below) Other Endocrine/Metabolic History: "insulin resistant" Hematologic History: Reports: None Immunologic History: Reports: None Oncologic (Cancer) History: Reports: None Dermatologic History: Reports: None - Infectious Disease History 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, MRSA - Past Surgical History Head Surgeries/Procedures: Reports: None HEENT Surgical History: Reports: Oral Surgery Cardiovascular Surgical History: Reports: None Respiratory Surgical History: Reports: None GI Surgical History: Reports: None Female Surgical History: Reports: None Endocrine Surgical History: Reports: None Neurological Surgical History: Reports: None Musculoskeletal Surgical History: Reports: None Other Musculoskeletal Surgeries/Procedures:: LEFT THIGH TUMOR Oncologic Surgical History: Reports: None Dermatological Surgical History: Reports: Other (See Below) Social & Family History - Family History Family Medical History: No Pertinent Family History - Tobacco Use Tobacco Use Status *Q: Never Tobacco User Second Hand Smoke Exposure: No - Caffeine Use Caffeine Use: Reports: None - Recreational Drug Use Recreational Drug Use: No ED ROS ENT - Review of Systems Review Of Systems: Comprehensive ROS is negative, except as noted in HPI. ED EXAM, ENT - Physical Exam Exam: See Below (See dictation) Course - Vital Signs Last Recorded V/S: Last Vital Signs Temp 97.8 F 11/03/20 20:31 Pulse 84 11/03/20 20:31 Resp 16 11/03/20 20:31 BP 146/94 H 11/03/20 20:31 Pulse Ox 98 11/03/20 20:31 - Orders/Labs/Meds Orders: Active Orders 24 hr Category Date Time Status Cervical Spine wo Cont [CT] Stat Exams 11/03/20 20:49 Taken Labs: Laboratory Tests 11/03/20 11/03/20 Range/Units 21:00 21:10 WBC 11.06 H (4.0-11.0) K/uL RBC 4.55 (4.30-5.90) M/uL Hgb 12.7 (12.0-16.0) g/dL Hct 37.8 (36.0-46.0) % MCV 83.1 (80.0-98.0) fL MCH 27.9 (27.0-32.0) pg MCHC 33.6 (31.0-37.0) g/dL RDW Std Deviation 40.5 (28.0-62.0) fl RDW Coeff of [place] 13 (11.0-15.0) % Plt Count 417 H (150-400) K/uL MPV 9.00 (7.40-12.00) fL Neut % (Auto) 55.4 (48.0-80.0) % Lymph % (Auto) 36.3 (16.0-40.0) % [place] % (Auto) 7.0 (0.0-15.0) % Eos % (Auto) 1.1 (0.0-7.0) % Baso % (Auto) 0.2 (0.0-1.5) % Neut # (Auto) 6.1 H (1.4-5.7) K/uL Lymph # (Auto) 4.0 H (0.6-2.4) K/uL [place] # (Auto) 0.8 (0.0-0.8) K/uL Eos # (Auto) 0.1 (0.0-0.7) K/uL Baso # (Auto) 0.0 (0.0-0.1) K/uL Nucleated RBC % 0.0 /100WBC Nucleated RBCs # 0 K/uL Sodium 137 (136-145) mmol/L Potassium 3.9 (3.5-5.1) mmol/L Chloride 104 (98-107) mmol/L Carbon Dioxide 21.3 (21.0-32.0) mmol/L BUN 12 (7.0-18.0) mg/dL Creatinine 0.7 (0.6-1.0) mg/dL Est Cr Clr Drug Dosing TNP Estimated GFR (MDRD) > 60.0 ml/min Glucose 266 H (74-106) mg/dL Calcium 8.8 (8.5-10.1) mg/dL Total Bilirubin 0.2 (0.2-1.0) mg/dL AST 15 (15-37) IU/L ALT 29 (14-63) IU/L Alkaline Phosphatase 80 (46-116) U/L Total Protein 7.0 (6.4-8.2) g/dL Albumin 3.3 L (3.4-5.0) g/dL Globulin 3.7 (2.6-4.0) g/dL Albumin/Globulin Ratio 0.9 (0.9-1.6) Meds: Medications Discontinued Medications Generic Name Dose Route Start Last Admin Trade Name Dellq PRN Reason Stop Dose Admin Ketorolac Tromethamine 60 mg 11/03/20 20:50 11/03/20 21:07 Ketorolac 60 Mg/2 Ml Sdv IM 11/03/20 20:51 60 mg ONETIME ONE Administration Departure - Departure Time of Disposition: 21:57 Disposition: Home, Self-Care 01 Clinical Impression: Cervical muscle strain Qualifiers: Encounter type: initial encounter Qualified Code(s): S16.1XXA - Strain of muscle, fascia and tendon at neck level, initial encounter - Discharge Information Referrals: Piotr Bowens MD [Primary Care Provider] - Forms: ED Department Discharge Additional Instructions: The following information is given to patients seen in the emergency department who are being discharged to home. This information is to outline your options for follow-up care. We provide all patients seen in our emergency department with a follow-up referral. The need for follow-up, as well as the timing and circumstances, are variable depending upon the specifics of your emergency department visit. If you don't have a primary care physician on staff, we will provide you with a referral. We always advise you to contact your personal physician following an emergency department visit to inform them of the circumstance of the visit and for follow-up with them and/or the need for any referrals to a consulting specialist. The emergency department will also refer you to a specialist when appropriate. This referral assures that you have the opportunity for follow-up care with a specialist. All of these measure are taken in an effort to provide you with optimal care, which includes your follow-up. Under all circumstances we always encourage you to contact your private physician who remains a resource for coordinating your care. When calling for follow-up care, please make the office aware that this follow-up is from your recent emergency room visit. If for any reason you are refused follow-up, please contact the [facility] Emergency Department at and asked to speak to the emergency department charge nurse. [facility] [address] [place] [id number] [facility] [address] [place] [address] Thank you for choosing the [facility] emergency department in [place] for your medical needs today. It was a pleasure caring for you. Today you were seen in the emergency department for neck pain. 1. You were seen today on an emergent basis. Your CT scans are normal although does show a cervical muscle sprain. Your blood work is normal. 2. When resting please lay on a flat firm surface. Limit your immobility to prevent muscle stiffness. Get up to ambulate/move around/gentle stretching multiple times throughout the day. May alternate heat and ice to the painful areas 3. Tylenol and ibuprofen as needed for neck pain. Otherwise take the prescribed Flexeril as directed. I would take ibuprofen with food routinely over the next few days. Flexeril as a muscle relaxant, this medication may cause drowsiness a do not take it will driving her needing to be functioning outside of the house. 4. Please follow-up with your primary care provider as we discussed. Return to the ED as needed and as discussed. Sepsis Event Note (ED) - Focused Exam Vital Signs: Vital Signs Temp Pulse Resp BP Pulse Ox 11/03/20 20:31 97.8 F 84 16 146/94 H 98 - My Orders Last 24 Hours: My Active Orders 11/03/20 20:49 Cervical Spine wo Cont [CT] Stat - Assessment/Plan Last 24 Hours: My Active Orders 11/03/20 20:49 Cervical Spine wo Cont [CT] Stat
[2020-11-03 21:47] LABS: BLOOD UREA NITROGEN,BUN 12 mg/dL (7.0-18.0); CARBON DIOXIDE,CO2 21.3 mmol/L (21.0-32.0); CHLORIDE,CL 104 mmol/L (98-107); GLUCOSE RANDOM 266 mg/dL (74-106); POTASSIUM,K 3.9 mmol/L (3.5-5.1); SODIUM,NA 137 mmol/L (136-145)
--- NOTE | 2020-11-03 21:47 | CT ---
Indication: Pain. Technique: Multiple contiguous axial images were obtained from the skullbase through the vertex without intravenous contrast enhancement. Please note that all CT scans at this facility use dose modulation, iterative reconstruction, and/or weight-based dosing when appropriate to reduce radiation dose to as low as reasonably achievable. Comparison: None Findings: The ventricles are symmetric and normal in size and morphology. The sen/white matter interface is within normal limits. No intra-axial or extra-axial hemorrhage is identified. No mass, mass effect, or midline shift is seen. The bony calvarium is intact. The visualized paranasal sinuses and mastoid air cells are clear. Impression: No acute intracranial process Please note that all CT scans at this facility use dose modulation, iterative reconstruction, and/or weight-based dosing when appropriate to reduce radiation dose to as low as reasonably achievable. Dictated by Whit Connors MD @ 11/03/2020 9:45:[address] Whit Connors @ Nov 03 2020 9:45PM
[2020-11-03] MEDS ORDERED: Cyclobenzaprine 10 MG Tab PO ONE (21:58)
[2020-11-03] MEDS ORDERED: Ibuprofen 800 MG Tab PO ONE (21:58)
--- NOTE | 2020-11-03 21:58 | CT ---
Indication: Pain. Technique: Multiple contiguous axial images were obtained through the level of the cervical spine. Sagittal and coronal reformatted images were performed. Please note that all CT scans at this facility use dose modulation, iterative reconstruction, and/or weight-based dosing when appropriate to reduce radiation dose to as low as reasonably achievable. Comparison: None Findings: The alignment of the cervical spine is within normal limits. The vertebral body heights are well maintained. The intervertebral disc space heights are well maintained. Reversal the normal cervical lordosis identified which can be seen with muscle sprain. The odontoid is intact. No fracture or subluxation is identified. Impression: Reversal the normal cervical lordosis which can be seen with muscle sprain. Please note that all CT scans at this facility use dose modulation, iterative reconstruction, and/or weight-based dosing when appropriate to reduce radiation dose to as low as reasonably achievable. Dictated by Whit Connors MD @ 11/03/2020 9:55:[address] Whit Connors @ Nov 03 2020 9:55PM
== END 2020-11-03 23:05 | disposition home or self-care (01) ==
LOC: MW.ED 20:19
DX: S13.4XXA Sprain of ligaments of cervical spine, initial encounter (principal); S16.1XXA Strain of muscle, fascia and tendon at neck level, initial encounter; E66.9 Obesity, unspecified; Z68.30 Body mass index [BMI] 30.0-30.9, adult; Z91.048 Other nonmedicinal substance allergy status; Z88.8 Allergy status to other drugs, medicaments and biological substances; W18.09XA Striking against other object with subsequent fall, initial encounter
CPT/HCPCS: 36415; 70450; 72125; 80053; 85025; 96372; 99284; A9270; J1885

== ENCOUNTER 2021-01-07 09:59 | Emergency (ER) | payer OTHER ==
--- NOTE | 2021-01-07 11:00 | EDM.PDOC ---
ED HPI GENERAL MEDICAL PROBLEM - General Chief Complaint: ENT Problem Stated Complaint: SORE THROAT Time Seen by Provider: 01/07/21 10:57 Source of Information: Reports: Patient History Limitations: Reports: No Limitations - History of Present Illness INITIAL COMMENTS - FREE TEXT/NARRATIVE: HISTORY AND PHYSICAL: History of present illness: Patient is a 30 year old female who presents to the ED with c/o sore throat and bilateral ear pain x 5 days. Her is being treated for strep throat. She states she attempted to be seen by her PCP, but they required COVID testing done first, this came back today as negative. She said they no longer had any openings available at the clinic and directed her here in the ED. Patient denies any fever, chills, headache, change in vision, syncope or near syncope. Denies any chest pain, back pain, shortness of breath or cough. Denies any abdominal pain, nausea, vomiting, diarrhea, constipation or dysuria. Has not noted any blood in urine or stool. Patient has been eating and drinking appropriately. No recent travel or sick contacts. Review of systems: As per history of present illness and below otherwise all systems reviewed and negative. Past medical history: As per history of present illness and as reviewed below otherwise noncontributory. Surgical history: As per history of present illness and as reviewed below otherwise noncontributory. Social history: See social history for further information Family history: As per history of present illness and as reviewed below otherwise noncontributory. Physical exam: General: Well developed and well nourished 30 year old female. Alert and orientated x 3. Nontoxic in appearance and in no acute distress. Vital signs are stable and have been reviewed by me. Nursing notes were reviewed. HEENT: Atraumatic, normocephalic, pupils equal and reactive bilaterally, negative for conjunctival pallor or scleral icterus, mucous membranes moist, TMs normal bilaterally, throat erythematous without exudate, neck supple, nontender, trachea midline. No drooling or trismus noted. No meningeal signs. No hot potato voice noted. Lungs: Clear to auscultation bilaterally. No wheezes, rales, or rhonchi. Chest nontender. Normal work of breathing, no accessory muscles used. Heart: S1S2, regular rate and rhythm without overt murmur, gallops, or rubs. No JVD. No peripheral edema Abdomen: Soft, nondistended, nontender. Skin: Intact, warm, dry. No lesions or rashes noted. Hematologic: No petechiae or purpra. Mucosa appropriate color and normal nail bed color and refill. Extremities: Atraumatic, moves all extremities per self without difficulty or deficits, negative for cords or calf pain. Neurovascular unremarkable. Neuro: Awake, alert, oriented. Cranial nerves II through XII unremarkable. Cerebellum unremarkable. Motor and sensory unremarkable throughout. Exam nonfocal. Psychiatric: Mood and affect are appropriate. Normal thought process. Answering questions appropriately. Please note that the patient was seen and evaluated during the 2019 SARS-CoV-2 novel coronavirus pandemic period. Community viral transmission is ongoing at time of this encounter and the emergency department is operating under pandemic response procedures. Medical Decision Making: Strep screening is negative. Due to length of illness and exposure, will treat with antibiotics. I have talked with the patient about today's findings, in addition to providing specific details for plan of care. Reassessment at the time of disposition demonstrates that the patient is in no acute distress. The patient is stable for discharge, counseling was provided and we discussed in great detail signs and symptoms that would prompt them to return to the Emergency Department. Medication, follow up and supportive care measures were reviewed and discussed. Voices understanding and is agreeable to plan of care. Denies any further questions or concerns at this time. Diagnostics: Strep Therapeutics: none Prescription: Augmentin Impression: Pharyngitis Plan: 1. You were evaluated today on an emergent basis. Your Strep screening was negative. Please take the medication as directed. 2. You can alternate Tylenol and ibuprofen as needed for pain and fever management. 3. We encourage you to follow up with your primary care provider and/or recommended specialist in the next few days for re-evaluation and further care/management. 4. If your symptoms should worsen, new symptoms develop or any of the signs and symptoms we discussed should arise please return to the emergency room or call 911 (if needed). Definitive disposition and diagnosis as appropriate pending reevaluation and review of above. Throat Pain Score (Numeric/FACES): 6 - Related Data Allergies Allergy/AdvReac Type Severity Reaction Status Date / Time adhesive Allergy Rash Verified 01/07/21 10:14 Gaines And Derivatives Allergy "throat Verified 01/07/21 10:14 swells" metformin Allergy Seizure Verified 01/07/21 10:14 aloe Allergy Nausea and Uncoded 01/07/21 10:14 Vomiting Home Meds: Home Meds Insulin Glarg,Human.Rec.Analog [Lantus] 12 units SQ ASDIRECTED PRN 09/08/17 [History] Insulin Aspart [NovoLOG] 1 dose SUBCUT ASDIRECTED 06/21/20 [History] Amoxicillin/Clavulanate K [Augmentin 875-125 MG] 1 tab PO BID 7 Days #14 tablet 01/07/21 [Rx] Past Medical History - Past Health History Medical/Surgical History: Denies Medical/Surgical History HEENT History: Reports: None Cardiovascular History: Reports: None Respiratory History: Reports: None Gastrointestinal History: Reports: GERD, Other (See Below) Other Gastrointestinal History: dysphagia Genitourinary History: Reports: Renal Calculus PIE CHEF History: Reports: Polycystic Ovaries, Musculoskeletal History: Reports: Fracture Other Musculoskeletal History: fx foot Neurological History: Reports: Migraines, Seizure 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 Psychiatric History: Reports: None Endocrine/Metabolic History: Reports: Obesity/BMI 30+, Other (See Below) Other Endocrine/Metabolic History: "insulin resistant" Hematologic History: Reports: None Immunologic History: Reports: None Oncologic (Cancer) History: Reports: None Dermatologic History: Reports: None - Infectious Disease History Infectious Disease History: Reports: MRSA - Past Surgical History Head Surgeries/Procedures: Reports: None HEENT Surgical History: Reports: Oral Surgery Cardiovascular Surgical History: Reports: None Respiratory Surgical History: Reports: None GI Surgical History: Reports: None Female Surgical History: Reports: None Endocrine Surgical History: Reports: None Neurological Surgical History: Reports: None Musculoskeletal Surgical History: Reports: None Other Musculoskeletal Surgeries/Procedures:: LEFT THIGH TUMOR Oncologic Surgical History: Reports: None Dermatological Surgical History: Reports: Other (See Below) Social & Family History - Family History Family Medical History: No Pertinent Family History - Tobacco Use Second Hand Smoke Exposure: No - Caffeine Use Caffeine Use: Reports: None - Recreational Drug Use Recreational Drug Use: No ED ROS ENT - Review of Systems Review Of Systems: Comprehensive ROS is negative, except as noted in HPI. ED EXAM, ENT - Physical Exam Exam: See Below (See dictation) Course - Vital Signs Last Recorded V/S: Last Vital Signs Temp 98 F 01/07/21 10:11 Pulse 109 H 01/07/21 10:11 Resp 20 01/07/21 10:11 BP 138/91 H 01/07/21 10:11 Pulse Ox 96 01/07/21 10:11 - Orders/Labs/Meds Labs: Laboratory Tests 01/07/21 Range/Units 10:14 Group A Strep (PCR) NOT DETECTED (NOT DETECT) Departure - Departure Time of Disposition: 10:59 Disposition: Home, Self-Care 01 Clinical Impression: Pharyngitis Qualifiers: Pharyngitis/tonsillitis etiology: unspecified etiology Qualified Code(s): J02.9 - Acute pharyngitis, unspecified - Discharge Information Prescriptions: Amoxicillin/Clavulanate K [Augmentin 875-125 MG] 1 tab PO BID 7 Days #14 tablet Instructions: Sore Throat, [id number] Referrals: Piotr Bowens MD [Primary Care Provider] - Forms: ED Department Discharge Additional Instructions: The following information is given to patients seen in the emergency department who are being discharged to home. This information is to outline your options for follow-up care. We provide all patients seen in our emergency department with a follow-up referral. The need for follow-up, as well as the timing and circumstances, are variable depending upon the specifics of your emergency department visit. If you don't have a primary care physician on staff, we will provide you with a referral. We always advise you to contact your personal physician following an emergency department visit to inform them of the circumstance of the visit and for follow-up with them and/or the need for any referrals to a consulting specialist. The emergency department will also refer you to a specialist when appropriate. This referral assures that you have the opportunity for follow-up care with a specialist. All of these measure are taken in an effort to provide you with optimal care, which includes your follow-up. Under all circumstances we always encourage you to contact your private physician who remains a resource for coordinating your care. When calling for follow-up care, please make the office aware that this follow-up is from your recent emergency room visit. If for any reason you are refused follow-up, please contact the [facility] Emergency Department at and asked to speak to the emergency department charge nurse. [facility] [address] [facility] [address] [facility] [address] [facility] [id number] 1. You were evaluated today on an emergent basis. Your Strep screening was negative. Please take the medication as directed. 2. You can alternate Tylenol and ibuprofen as needed for pain and fever management. 3. We encourage you to follow up with your primary care provider and/or recommended specialist in the next few days for re-evaluation and further care/management. 4. If your symptoms should worsen, new symptoms develop or any of the signs and symptoms we discussed should arise please return to the emergency room or call 911 (if needed). Sepsis Event Note (ED) - Evaluation Sepsis Screening Result: No Definite Risk - Focused Exam Vital Signs: Vital Signs Temp Pulse Resp BP Pulse Ox 01/07/21 10:11 98 F 109 H 20 138/91 H 96
[2021-01-07 11:15] VITALS: BP 131/90; PULSE 87
== END 2021-01-07 11:16 | disposition home or self-care (01) ==
LOC: MW.ED 09:59
DX: J02.9 Acute pharyngitis, unspecified (principal); E66.9 Obesity, unspecified; Z68.38 Body mass index [BMI] 38.0-38.9, adult; Z91.048 Other nonmedicinal substance allergy status; Z91.018 Allergy to other foods; Z88.8 Allergy status to other drugs, medicaments and biological substances
CPT/HCPCS: 87651-QW; 99283

== ENCOUNTER 2021-06-05 15:36 | Emergency (ER) | payer OTHER ==
[2021-06-05 18:03] VITALS: BP 139/78; PULSE 98
== END 2021-06-05 18:03 | disposition home or self-care (01) ==
LOC: MW.ED 15:36
DX: N93.8 Other specified abnormal uterine and vaginal bleeding (principal); E11.9 Type 2 diabetes mellitus without complications; E66.9 Obesity, unspecified; Z68.39 Body mass index [BMI] 39.0-39.9, adult; Z91.048 Other nonmedicinal substance allergy status; Z88.8 Allergy status to other drugs, medicaments and biological substances; Z79.84 Long term (current) use of oral hypoglycemic drugs
CPT/HCPCS: 36415; 76830; 76830-26; 81001; 81025; 85025; 99283; 99284-25

== ENCOUNTER 2021-10-22 03:36 | Emergency (ER) | payer OTHER ==
[2021-10-22] MEDS ORDERED: Ibuprofen 600 MG Tab PO ONE (04:10)
[2021-10-22] MEDS ORDERED: Sodium Chloride 0.9% 10 ML Syringe FLUSH PRN (04:10)
[2021-10-22] MEDS ORDERED: Acetaminophen 500 MG Tab PO ONE (04:10)
[2021-10-22] MEDS ORDERED: Sodium Chloride 0.9% 2.5 ML Syringe FLUSH PRN (04:10)
[2021-10-22] MEDS ORDERED: Sodium Chloride 0.9% 1,000 ML IV ONE (04:10)
[2021-10-22] MEDS ORDERED: Ondansetron 4 MG/2 ML SDV IVPUSH ONE (04:14)
[2021-10-22 04:58] LABS: CARBON DIOXIDE,CO2 25.1 mmol/L (21.0-32.0); POTASSIUM,K 4.1 mmol/L (3.5-5.1)
[2021-10-22 08:20] VITALS: BP 122/85; PULSE 72
== END 2021-10-22 08:18 | disposition home or self-care (01) ==
LOC: MW.ED 03:36
DX: U07.1 COVID-19 (principal); E11.9 Type 2 diabetes mellitus without complications; E66.9 Obesity, unspecified; Z68.39 Body mass index [BMI] 39.0-39.9, adult; Z91.048 Other nonmedicinal substance allergy status; Z88.8 Allergy status to other drugs, medicaments and biological substances; Z79.4 Long term (current) use of insulin; Z79.899 Other long term (current) drug therapy; Z72.0 Tobacco use
CPT/HCPCS: 36415; 71045; 80053; 81003; 81025; 85025; 87635; 96361; 96374; 99283; A9270; J2405; J3490; J7030; U0002

== ENCOUNTER 2022-05-20 20:07 | Emergency (ER) | payer OTHER ==
[2022-05-21 00:16] VITALS: BP 114/65; PULSE 74
== END 2022-05-20 22:35 | disposition home or self-care (01) ==
LOC: MW.ED 20:07
DX: M25.572 Pain in left ankle and joints of left foot (principal); R60.0 Localized edema; K21.9 Gastro-esophageal reflux disease without esophagitis; E11.9 Type 2 diabetes mellitus without complications; E66.9 Obesity, unspecified; Z68.41 Body mass index [BMI] 40.0-44.9, adult; Z91.048 Other nonmedicinal substance allergy status; Z88.8 Allergy status to other drugs, medicaments and biological substances; Z79.4 Long term (current) use of insulin; Z79.899 Other long term (current) drug therapy
CPT/HCPCS: 73610-26-LT; 73610-LT; 99283

== ENCOUNTER 2022-06-13 19:19 | Emergency (ER) | payer OTHER ==
[2022-06-13] MEDS ORDERED: Ibuprofen 600 MG Tab PO ONE (19:47)
[2022-06-13] MEDS ORDERED: traMADol 50 MG Tab PO ONE (19:47)
[2022-06-13 21:03] VITALS: BP 131/84; PULSE 90
== END 2022-06-13 21:21 | disposition home or self-care (01) ==
LOC: MW.ED 19:19
DX: S53.401A Unspecified sprain of right elbow, initial encounter (principal); E11.9 Type 2 diabetes mellitus without complications; E66.9 Obesity, unspecified; Z91.048 Other nonmedicinal substance allergy status; Z88.8 Allergy status to other drugs, medicaments and biological substances; Z79.4 Long term (current) use of insulin; Z68.45 Body mass index [BMI] 70 or greater, adult; W18.30XA Fall on same level, unspecified, initial encounter
CPT/HCPCS: 73080; 99283; A9270

== ENCOUNTER 2022-09-04 10:24 | Emergency (ER) | payer OTHER ==
[2022-09-04 10:44] VITALS: BP 145/100; PULSE 111
[2022-09-04] MEDS ORDERED: Sodium Chloride 0.9% 10 ML Syringe FLUSH PRN (10:54)
[2022-09-04] MEDS ORDERED: Sodium Chloride 0.9% 2.5 ML Syringe FLUSH PRN (10:54)
[2022-09-04] MEDS ORDERED: Sodium Chloride 0.9% 1,000 ML IV STA ×2 (10:56→12:35)
[2022-09-04] MEDS ORDERED: Ondansetron 4 MG/2 ML SDV IVPUSH STA (10:56)
[2022-09-04 11:35] LABS: BASOPHILS PERCENT AUTO 0.2 % (0.0-1.5); EOSINOPHILS ABSOLUTE AUTO 0.3 K/uL (0.0-0.7); EOSINOPHILS PERCENT AUTO 2.8 % (0.0-7.0); HEMATOCRIT 43.1 % (36.0-46.0); HEMOGLOBIN 14.7 g/dL (12.0-16.0); LYMPHOCYTES ABSOLUTE AUTO 2.1 K/uL (0.6-2.4); MEAN CORPUSCULAR HEMOGLOBIN 28.7 pg (27.0-32.0); MEAN CORPUSCULAR HGB CONC 34.1 g/dL (31.0-37.0); MONOCYTES ABSOLUTE AUTO 0.8 K/uL (0.0-0.8); MONOCYTES PERCENT AUTO 8.4 % (0.0-15.0); NEUTROPHILS ABSOLUTE AUTO 5.9 K/uL (1.4-5.7); NEUTROPHILS PERCENT AUTO 65.6 % (48.0-80.0); NRBC ABSOLUTE 0 K/uL; PLATELET COUNT,PLT 442 K/uL (150-400); RED BLOOD CELL COUNT 5.13 M/uL (4.30-5.90); WHITE BLOOD CELL COUNT,WBC 8.97 K/uL (4.0-11.0)
[2022-09-04 12:01] LABS: A/G RATIO 0.8 (0.9-1.6); ALBUMIN 3.6 g/dL (3.4-5.0); BILIRUBIN TOTAL 0.4 mg/dL (0.2-1.0); CALCIUM 8.7 mg/dL (8.5-10.1); CARBON DIOXIDE,CO2 21.2 mmol/L (21.0-32.0); CREATININE 0.8 mg/dL (0.6-1.0); EST CRCL DRUG DOSING (CG) 105.51 mL/min; MAGNESIUM 1.7 mg/dL (1.8-2.4); POTASSIUM,K 3.9 mmol/L (3.5-5.1); PROTEIN TOTAL,TP 8.1 g/dL (6.4-8.2)
[2022-09-04] MEDS ORDERED: Magnesium Sulfate/Water 2 GM in Premix Bag 1 BAG IV STA (12:03)
[2022-09-04 13:49] LABS: APPEARANCE,URINE CLOUDY; BILIRUBIN,URINE NEGATIVE (NEGATIVE); COLOR,URINE YELLOW; GLUCOSE,URINE NEGATIVE (NEGATIVE); KETONES,URINE NEGATIVE (NEGATIVE); LEUKOCYTE ESTERASE,URINE NEGATIVE (NEGATIVE); NITRITE,URINE NEGATIVE (NEGATIVE); OCCULT BLOOD,URINE NEGATIVE (NEGATIVE); PROTEIN,URINE NEGATIVE (NEGATIVE); UROBILINOGEN,URINE 0.2 EU/dL (<2.0)
== END 2022-09-04 15:52 | disposition home or self-care (01) ==
LOC: MW.ED 10:24
DX: A08.4 Viral intestinal infection, unspecified (principal); K21.9 Gastro-esophageal reflux disease without esophagitis; E11.9 Type 2 diabetes mellitus without complications; Z79.899 Other long term (current) drug therapy; Z91.048 Other nonmedicinal substance allergy status; Z91.018 Allergy to other foods; Z88.8 Allergy status to other drugs, medicaments and biological substances
CPT/HCPCS: 36415; 80053; 81003; 81025; 83690; 83735; 85025; 87045; 87046; 87324; 87338; 87449; 87899; 96361; 96365; 96375; 99284; J2405; J3475; J3490; J7030; 99283

== ENCOUNTER 2022-10-24 17:32 | Emergency (ER) | payer OTHER ==
[2022-10-24] MEDS ORDERED: Ondansetron 4 MG/2 ML SDV IVPUSH ONE (18:30)
[2022-10-24] MEDS ORDERED: Sodium Chloride 0.9% 1,000 ML IV ONE (18:30)
[2022-10-24] MEDS ORDERED: Morphine 4 MG/ML Syringe IVPUSH ONE (18:30)
[2022-10-24 19:04] LABS: BASE EXCESS VENOUS -1.4 (-2.0-3.0); BASOPHILS PERCENT AUTO 0.1 % (0.0-1.5); BICARBONATE,VENOUS 25 mEq/L (23-28); EOSINOPHILS ABSOLUTE AUTO 0.2 K/uL (0.0-0.7); EOSINOPHILS PERCENT AUTO 1.2 % (0.0-7.0); HEMATOCRIT 43.5 % (36.0-46.0); HEMOGLOBIN 14.6 g/dL (12.0-16.0); LYMPHOCYTES ABSOLUTE AUTO 2.3 K/uL (0.6-2.4); LYMPHOCYTES PERCENT AUTO 14.5 % (16.0-40.0); MEAN CORPUSCULAR HEMOGLOBIN 28.6 pg (27.0-32.0); MEAN CORPUSCULAR HGB CONC 33.6 g/dL (31.0-37.0); MEAN CORPUSCULAR VOLUME 85.3 fL (80.0-98.0); MONOCYTES ABSOLUTE AUTO 1.2 K/uL (0.0-0.8); MONOCYTES PERCENT AUTO 7.4 % (0.0-15.0); NEUTROPHILS PERCENT AUTO 76.8 % (48.0-80.0); NRBC ABSOLUTE 0 K/uL; PCO2 VENOUS 45 mmHG (41-51); PH,VENOUS 7.35 (7.31-7.41); PLATELET COUNT,PLT 492 K/uL (150-400); WHITE BLOOD CELL COUNT,WBC 15.67 K/uL (4.0-11.0)
[2022-10-24 19:17] LABS: PO2 VENOUS < 30 mmHG
[2022-10-24 19:35] LABS: A/G RATIO 0.8 (0.9-1.6); ALBUMIN 3.5 g/dL (3.4-5.0); BILIRUBIN TOTAL 0.3 mg/dL (0.2-1.0); CALCIUM 9.2 mg/dL (8.5-10.1); CARBON DIOXIDE,CO2 24.8 mmol/L (21.0-32.0); CREATININE 0.7 mg/dL (0.6-1.0); EST CRCL DRUG DOSING (CG) 120.58 mL/min; MAGNESIUM 1.8 mg/dL (1.8-2.4); POTASSIUM,K 3.9 mmol/L (3.5-5.1); PROTEIN TOTAL,TP 7.7 g/dL (6.4-8.2)
[2022-10-24 19:39] LABS: LACTIC ACID 0.8 mmol/L (0.4-2.0)
[2022-10-24] MEDS ORDERED: Iopamidol 755 MG/ML 500 ML Multipack Bottle IVPUSH ONE (19:54)
[2022-10-24 20:19] LABS: APPEARANCE,URINE CLEAR; BILIRUBIN,URINE NEGATIVE (NEGATIVE); COLOR,URINE YELLOW; GLUCOSE,URINE NEGATIVE (NEGATIVE); KETONES,URINE 15 mg/dL (NEGATIVE); LEUKOCYTE ESTERASE,URINE NEGATIVE (NEGATIVE); NITRITE,URINE NEGATIVE (NEGATIVE); OCCULT BLOOD,URINE TRACE-INTACT (NEGATIVE); PH,URINE 5.5 (5.0-8.0); PROTEIN,URINE NEGATIVE (NEGATIVE); UROBILINOGEN,URINE 0.2 EU/dL (<2.0)
[2022-10-24 20:27] LABS: RBC,URINE 0-1 (0-2/HPF)
[2022-10-24 20:28] LABS: BACTERIA,URINE FEW (NEGATIVE); EPITHELIAL CELLS,URINE FEW (NONE-FEW); MUCUS,URINE MODERATE (NONE-MOD); WBC,URINE 0-1 (0-5/HPF)
[2022-10-24] MEDS ORDERED: Sodium Chloride 0.9% 1,000 ML IV STA (21:15)
[2022-10-24] MEDS ORDERED: Promethazine 25 MG/ML SDV IM ONE (21:59)
[2022-10-24 23:57] VITALS: BP 138/64; PULSE 76
== END 2022-10-24 22:27 | disposition home or self-care (01) ==
LOC: MW.ED 17:32
DX: A08.4 Viral intestinal infection, unspecified (principal); E11.9 Type 2 diabetes mellitus without complications; Z91.048 Other nonmedicinal substance allergy status; Z88.8 Allergy status to other drugs, medicaments and biological substances; Z79.899 Other long term (current) drug therapy
CPT/HCPCS: 36415; 74177; 80053; 81001; 82009; 82803; 82947; 83605; 83690; 83735; 84703; 85025; 87045; 87046; 87328; 87329; 87449; 87899; 93005; 96361; 96372; 96374; 96375; 99284; J2270; J2405; J2550; J7030; Q9967

== ENCOUNTER 2024-01-02 19:40 | Emergency (ER) | payer OTHER ==
[2024-01-02] MEDS: Sulfamethoxazole/Trimethoprim 800-160 MG Tab PO ONE (20:42)
[2024-01-02] MEDS: Cephalexin 500 MG Cap PO ONE (20:42)
[2024-01-02 20:48] VITALS: BP 136/86; PULSE 91
== END 2024-01-02 21:02 | disposition home or self-care (01) ==
LOC: MW.ED 19:40
DX: L03.311 Cellulitis of abdominal wall (principal); E11.9 Type 2 diabetes mellitus without complications; Z79.4 Long term (current) use of insulin; Z79.899 Other long term (current) drug therapy; Z91.048 Other nonmedicinal substance allergy status; Z91.018 Allergy to other foods; Z88.8 Allergy status to other drugs, medicaments and biological substances; Z91.09 Other allergy status, other than to drugs and biological substances; Z75.8 Other problems related to medical facilities and other health care
CPT/HCPCS: 99283; A9270

== ENCOUNTER 2024-05-23 20:59 | Emergency (ER) | payer OTHER ==
[2024-05-23 22:49] VITALS: BP 110/70; PULSE 82
== END 2024-05-23 22:45 | disposition home or self-care (01) ==
LOC: MW.ED 20:59
DX: H61.23 Impacted cerumen, bilateral (principal); E10.9 Type 1 diabetes mellitus without complications; Z91.048 Other nonmedicinal substance allergy status; Z91.018 Allergy to other foods; Z88.8 Allergy status to other drugs, medicaments and biological substances
CPT/HCPCS: 69210; 82947; 93005; 93010; 99282; 99284

== ENCOUNTER 2025-02-15 09:36 | Emergency (ER) | payer OTHER ==
[2025-02-15] MEDS ORDERED: Sodium Chloride 0.9% 10 ML Syringe FLUSH PRN (11:21)
[2025-02-15] MEDS ORDERED: Sodium Chloride 0.9% 2.5 ML Syringe FLUSH PRN (11:21)
[2025-02-15] MEDS: Ketorolac 30 MG/ML SDV IVPUSH ONE (11:46)
[2025-02-15] MEDS: diphenhydrAMINE 50 MG/ML SDV IVPUSH ONE (11:46)
[2025-02-15] MEDS: methylPREDNISolone Sodium Succinate 40 MG/1 ML SDV IVPUSH ONE (11:46)
[2025-02-15 13:01] VITALS: BP 140/82; PULSE 81
== END 2025-02-15 13:02 | disposition home or self-care (01) ==
LOC: MW.ED 09:36
DX: G43.909 Migraine, unspecified, not intractable, without status migrainosus (principal); E86.0 Dehydration; E10.9 Type 1 diabetes mellitus without complications; Z91.048 Other nonmedicinal substance allergy status; Z88.8 Allergy status to other drugs, medicaments and biological substances; Z91.018 Allergy to other foods; Z79.4 Long term (current) use of insulin; Z79.899 Other long term (current) drug therapy
CPT/HCPCS: 36415; 82947; 84703; 96361; 96374; 96375; 99284; J1200; J1308; J1885; J2765; J2919; J7030